=== PATIENT | female | born 1935 | race Caucasian/White ===

== ENCOUNTER 2019-03-23 03:54 | Inpatient (IN) | payer MEDICARE, OTHER, SELFPAY ==
[2019-03-23] VITALS (10 sets, daily range): BP systolic 126–189; BP diastolic 62–80; PULSE 66–80; RESP 12–18; TEMP 35.7–36.9; O2SAT 95–100; BMI 24.5
--- NOTE | 2019-03-23 | DI.ECHO.S_ITS ---
[facility]---------+ [facility] +---------+ : : [address] : [address] : : : : [id number] : : : : Phone: [phone]+ Echocardiogram Report + + :Name: LISA JUSTIN Study Date: 03/23/2019 Height: 62 in : :[facility] Exam Location: [facility] Weight: 130 lb : : Gender: Female BSA: 1.6 m2 : :: 1935 Age: 83 yrs BP: 183/71 mmHg: :Reason For Study: STROKE : : Performed By: Joshua Robles : :Referring: BALJINDER EVANS : + + Interpretation Summary 1) Normal left ventricular thickness, size, wall motion, and systolic function (EF 60-65%). 2) Normal right ventricular size and function. 3) There is mild to moderate aortic regurgitation. 4) Hypertension present during the study (BP 183/71mmHg). 5) No prior Echo available for comparison. Procedure: A two-dimensional transthoracic echocardiogram with color flow and Doppler was performed. The study quality was technically adequate. There is no prior echocardiogram noted for this patient. The patient was in normal sinus rhythm during the exam. Left Ventricle: The left ventricle is normal in size. There is normal left ventricular wall thickness. Proximal septal thickening is noted. The ejection fraction is estimated to be 60-65%. There are no focal wall motion abnormalities. Right Ventricle: The right ventricle is normal in size and function. Atria: The left atrium is mildly dilated. Right atrial size is normal. The interatrial septum is intact with no evidence for an atrial septal defect. Mitral Valve: The mitral valve is normal in structure and function. There is mild mitral regurgitation. Aortic Valve: The aortic valve is trileaflet. The aortic valve opens well. There is no aortic valve stenosis. There is mild to moderate aortic regurgitation. Tricuspid Valve: The tricuspid valve is normal in structure and function. There is a trace or physiologic amount of tricuspid regurgitation. The right ventricular systolic pressure is estimated to be at least 19 mmHg based on an estimated right atrial pressure of 3 mm Hg. Pulmonic Valve: The pulmonic valve is normal in structure and function. There is trace pulmonic regurgitation. Great Vessels: The aortic root is normal size. The dimensions of the ascending aorta are normal. The pulmonary artery is normal size. The IVC is of normal diameter and collapses greater than 50% with a sniff. This suggests a low right atrial pressure of 3 mm Hg. Pericardium/ Pleura There is no pericardial effusion. There is no pleural effusion. MMode/2D Measurements & Calculations LVIDd: 4.1 cm LVOT diam: 1.9 cm LVIDs: 2.6 cm Ao root diam: 2.9 cm FS: 37.3 % Aortic Jxn: 2.4 cm EPSS: 0.27 cm asc Aorta Diam: 2.9 cm IVSd: 0.68 cm Ao Arch Diam (Prox Trans): 2.1 cm LVPWd: 0.78 cm LV gagnon. diameter/BSA (cm/m^2): 2.6 LV sys. diameter/BSA (cm/m^2): 1.6 LA dimension: 2.9 cm RA long axis: 4.7 cm LA A2 area: 18.8 cm2 RA area: 14.7 cm2 LA A4 area: 18.4 cm2 RA vol: 39.0 ml LA length (vol): 4.9 cm RA : 24.5 ml/m2 LA vol: 59.4 ml IVC diam: 1.0 cm LA vol index: 37.3 ml/m2 Doppler Measurements & Calculations Ao V2 max: 127.0 cm/sec LVOT Max Man: 109.5 cm/sec Ao V2 mean: 86.3 cm/sec LV V1 max P.8 mmHg Ao max P.5 mmHg LV V1 VTI: 21.6 cm Ao mean P.3 mmHg PATRICK(I,D): 2.3 cm2 Ao V2 VTI: 26.8 cm PATRICK(V,D): 2.5 cm2 sev ratio: 0.80 PATRICK indexed to BSA (cm^2/m^2): 1.4 AI P1/2t: 447.3 msec AI dec slope: 293.5 cm/sec2 MV E max man: 63.0 cm/sec TR max man: 201.3 cm/sec MV A max man: 91.1 cm/sec TR max P.2 mmHg MV E/A: 0.69 PA V2 max: 75.7 cm/sec Med Peak E' Man: 5.1 cm/sec PA V2 mean: 55.7 cm/sec E/E' med: 12.4 PA mean P.3 mmHg Lat Peak E' Man: 5.1 cm/sec PA pr(Accel): 49.1 mmHg E/E' lat: 12.4 PA Accel Time: 0.06 sec E/e' average: 12.4 MV dec time: 0.14 sec SV(LVOT): 61.4 ml Reading Physician:09:52 AM
--- NOTE | 2019-03-23 03:59 | DI.CT.S_ITS ---
PROCEDURE: CT HEAD/BRAIN WO CON INDICATIONS: stroke symptoms, Left face, arm, leg weakness TECHNIQUE: Noncontrast 4.5 mm thick angled axial sections acquired from the foramen magnum to the vertex, with coronal and sagittal reformats. For radiation dose reduction, the following was used: automated exposure control, adjustment of mA and/or kV according to patient size. COMPARISON: [facility], , CT HEAD W/O, 12/05/2005, 9:04. FINDINGS: Image quality: Excellent. CSF spaces: Basal cisterns are patent. No extra-axial fluid collections. The ventricles are symmetric in size and shape. Brain: No intracranial bleeds or masses. There is mild cerebral volume loss for age, with resultant ventricular and sulcal prominence. There are moderate periventricular and deep white matter chronic small vessel ischemic changes. There is intracranial internal carotid artery atherosclerosis. Skull and face: Calvarium and visualized facial bones appear intact, without suspicious lesions. Sinuses: Visualized sinuses and mastoids are clear. IMPRESSION: 1. No acute intracranial abnormalities. 2. Cerebral volume loss and chronic microvascular ischemic changes. No significant discrepancy with the refrigerator glazier radiology preliminary report. Dictated by: Di Nance M.D. on 03/23/2019 at 7:45 Approved by: Di Nance M.D. on 03/23/2019 at 7:46
--- NOTE | 2019-03-23 04:10 | ED_ITS ---
HPI - Neuro Symptoms/Deficit General Chief Complaint: Neuro Symptoms/Deficit Stated Complaint: Lt Side Deficit Time Seen by Provider: 03/23/19 03:55 Source: patient and EMS Mode of arrival: EMS Limitations: no limitations History of Present Illness HPI Narrative: 83-year-old female nonsmoker presents by EMS for evaluation of stroke-like symptoms which started approximately 15 hours prior to her arrival. The symptoms include left-sided facial weakness some numbness trouble with speech as well as trouble ambulating. She denies any recent injury or blood thinners. She has had no fever or chills. She was not activated as a code stroke, she does have a positive be fast but it is greater than 4.5 hours and does not have evidence suggesting a large vessel occlusion as evidence by a LAMS score of 4-5. Location: speech and left face History of same: No Severity: moderate Quality: weak and tingling Relieving factors: none Exacerbating factors: none Context: gradual onset On Anticoagulants: No Associated symptoms: denies other symptoms Related Data Home Medications Medication Instructions Recorded Confirmed paroxetine HCl 1 tab PO DAILY 03/23/19 03/23/19 Allergies Allergy/AdvReac Type Severity Reaction Status Date / Time No Known Drug Allergies Allergy Verified 03/23/19 04:05 Review of Systems Constitutional Denies chills, Denies fever(s), Denies lethargy and Reports weakness Eyes Denies change in vision, Denies eye discharge, Denies irritation and Denies loss of vision ENT Ears, Nose, Mouth, and Throat: Denies change in voice, Denies neck pain and Denies sore throat Cardiovascular Denies chest pain, Denies irregular heart rhythm, Denies lightheadedness, Denies palpitations, Denies dyspnea, Denies dyspnea on exertion and Denies orthopnea Respiratory Denies cough, Denies dyspnea, Denies dyspnea on exertion and Denies wheezing Gastrointestinal Gastrointestinal: Denies abdominal pain, Denies change in bowel habits, Denies diarrhea, Denies nausea and Denies vomiting Genitourinary Denies hematuria, Denies flank pain, Denies urinary incontinence and Denies urinary urgency Musculoskeletal Denies neck pain and Reports tingling Integumentary/Breasts Denies pruritus, Denies erythema, Denies rash and Denies wounds Neurologic Denies confusion, Denies loss of vision, Reports sensory deficit, Reports tingling and Reports weakness Psychiatric Denies anxiety, Denies confusion, Denies depression, Denies homicidal ideation and Denies suicidal ideation Endocrine Denies palpitations Hematologic/Lymphatic Denies easy bruising Allergic/Immunologic Denies wheezing PFSH Social History Smoking Status: Never smoker Social History Smoking Status: Never smoker Exam Narrative Exam Narrative: GENERAL: 83-year-old female appears stated age, in no obvious or significant distress HEAD: Atraumatic. Normocephalic. No temporal or scalp tenderness. EYES: Pupils equal round and reactive. Extraocular motions intact. No scleral icterus. No injection or drainage. ENT: Nose without bleeding, purulent drainage or septal hematoma. Throat without erythema, tonsillar hypertrophy or exudate. Uvula midline. Airway patent. NECK: Trachea midline. No JVD or lymphadenopathy. Supple, nontender, no meningeal signs. CARDIOVASCULAR: Regular rate and rhythm without murmurs, gallops, or rubs. RESPIRATORY: Clear to auscultation. Breath sounds equal bilaterally. No wheezes, rales, or rhonchi. GASTROINTESTINAL: Abdomen soft, non-tender, nondistended. No hepato-spl enomegaly, or palpable masses. No guarding. EXTREMITIES: No clubbing, cyanosis, or edema. No joint tenderness, effusion, or edema noted. BACK: Nontender without deformity or crepitance. No flank tenderness. NEURO: AOx3. SKIN: No rash or erythema. NIH Stroke Scale 1a. LOC: Patient is alert and keenly responsive (0) 1b. LOC Questions: Patient answers both LOC questions accurately (0) 1c. LOC Commands: Patient performs both tasks correctly (0) 2. Best Gaze: Normal (0) 3. Visual: No visual loss (0) 4. Facial palsy: Normal symmetrical movements (0) 5. Motor arm: No drift (0) 6. Motor leg: No drift (0) 7. Limb ataxia: Absent (0) 8. Sensory: Normal (0) 9. Best language: No aphasia; normal (0) 10. Dysarthria: Normal (0) 11. Extinction and inattention: No abnormality (0) NIHSS: 0 Initial Vital Signs Initial Vital Signs: Vital Signs Temperature 98.2 F 03/23/19 03:54 Pulse Rate 68 03/23/19 03:54 Respiratory Rate 12 03/23/19 03:54 Blood Pressure 189/68 H 03/23/19 03:54 Pulse Oximetry 97 03/23/19 03:54 Scores ABCD2 Age >= 60 years: yes Initial BP. Either SBP >= 140 or DBP >= 90.: yes Clinical features of the TIA: unilateral weakness Duration of symptoms: >= 60 minutes History of diabetes: no ABCD2 Score: 6 Course Orders Ordered: ED Orders 03/23/19 EC echo doppler complete Routine 03/23/19 03:59 CT head/brain wo con Stat EKG-12 Lead Stat 03/23/19 04:00 Basic Metabolic Panel Stat Complete Blood Count AUTO DIFF Stat Partial Thromboplastin Time Stat Prothrombin Time INR Stat 03/23/19 05:30 Urinalysis and Microscopic Stat Urine Drug Screen, Rapid Stat 03/23/19 05:40 Consult to Discharge Planning Routine Consult to Occupational Therapy Evaluate & Treat Consult to Physical Therapy Evaluate & Treat Consult to Speech Therapy Evaluate & Treat MR stroke Stat Education, smoking cessation ONGOING 03/23/19 05:49 Hemoglobin A1C% w Est Avg Glu Urgent Acetaminophen (Tylenol) 650 mg PO Q6HR PRN PRN Reason: Fever Aspirin (Aspirin Ec) 81 mg PO DAILY PRAVEENA Sodium Chloride (Normal Saline 0.9%) 1,000 mls @ 150 mls/hr IV CONT PRAVEENA Last Admin: 03/23/19 04:22 Dose: 150 mls/hr Labetalol HCl (Trandate) 10 mg IV Q6H PRN PRN Reason: Hypertension Discontinued Medications Aspirin (Aspirin Chew) 324 mg PO NOW ONE Stop: 03/23/19 05:33 Last Admin: 03/23/19 05:45 Dose: 324 mg Consultations Consultation #1: hospitalist is happy to accept Vital Signs - 8 hr 03/23/19 03:54 03/23/19 05:13 03/23/19 05:30 Temperature 98.2 F Pulse Rate 68 78 66 Respiratory Rate 12 15 13 Blood Pressure 189/68 H Blood Pressure [Right Arm] 180/65 H 169/71 H Pulse Oximetry 97 98 97 MDM - Neuro Symptoms/Deficit Lab Data Result diagrams: 03/23/19 04:00 03/23/19 04:00 Lab Results 03/23/19 03/23/19 03/23/19 Range/Units 04:00 04:00 04:00 WBC 6.3 (4.5-11.0) X10^3/uL RBC 5.17 (4.0-5.2) X10^6/uL Hgb 13.2 (12.0-16.0) g/dL Hct 39.9 (36-46) % MCV 77.3 L (80-100) fL MCH 25.6 L (26-34) PG MCHC 33.1 (30-36) % RDW 14.5 (11.6-14.8) % Plt Count 211 (150-400) X10^3/uL Neut % (Auto) 49.1 L (50-75) % Lymph % (Auto) 41.3 H (25-40) % [place] % (Auto) 5.9 (3-14) % Eos % (Auto) 2.8 (2-4) % Baso % (Auto) 0.9 (0-2) % Neut # (Auto) 3100 (7638-5578) /uL Lymph # (Auto) 2600 (0071-2110) /uL [place] # (Auto) 400 (0-900) /uL Eos # (Auto) 200 (0-450) /uL Baso # (Auto) 100 (0-100) /uL PT 10.9 (10.1-12.7) SECONDS INR 0.9 (0.9-1.3) APTT 24 L (26.4-36.2) SECONDS Sodium 141 (137-145) mmol/L Potassium 4.0 (3.4-5.1) mmol/L Chloride 109 H (98-107) mmol/L Carbon Dioxide 26 (22-32) mmol/L BUN 19 H (7-17) mg/dL Creatinine 0.90 (0.52-1.04) mg/dL Estimated GFR > 60.0 (>60) mL/min BUN/Creatinine Ratio 21.1 (6-22) Glucose 103 (80-110) mg/dL Calcium 9.3 (8.4-10.2) mg/dL Urine Color Urine Appearance Urine pH (4.5-8.0) Ur Specific [place] (1.000-1.035) Urine Protein (Negative) Urine Glucose (UA) (Negative) g/dL Urine Ketones (NEGATIVE) Urine Occult Blood (Negative) Urine Nitrate (Negative) Urine Bilirubin (NEGATIVE) Urine Urobilinogen (0.2) E.U./dL Ur Leukocyte Esterase (NEGATIVE) Urine Opiates Screen (Negative) Ur Oxycodone Screen (Negative) Urine Methadone Screen (Negative) Ur Barbiturates Screen (Negative) U Tricyclic Antidepress (Negative) Ur Phencyclidine Scrn (Negative) Ur Amphetamines Screen (Negative) U Methamphetamines Scrn (Negative) Ur MDMA Scrn (Ecstasy) (Negative) U Benzodiazepines Scrn (Negative) Urine Cocaine Screen (Negative) U Marijuana (THC) Screen (Negative) 03/23/19 03/23/19 Range/Units 05:30 05:30 WBC (4.5-11.0) X10^3/uL RBC (4.0-5.2) X10^6/uL Hgb (12.0-16.0) g/dL Hct (36-46) % MCV (80-100) fL MCH (26-34) PG MCHC (30-36) % RDW (11.6-14.8) % Plt Count (150-400) X10^3/uL Neut % (Auto) (50-75) % Lymph % (Auto) (25-40) % [place] % (Auto) (3-14) % Eos % (Auto) (2-4) % Baso % (Auto) (0-2) % Neut # (Auto) (0273-5035) /uL Lymph # (Auto) (8581-3013) /uL [place] # (Auto) (0-900) /uL Eos # (Auto) (0-450) /uL Baso # (Auto) (0-100) /uL PT (10.1-12.7) SECONDS INR (0.9-1.3) APTT (26.4-36.2) SECONDS Sodium (137-145) mmol/L Potassium (3.4-5.1) mmol/L Chloride (98-107) mmol/L Carbon Dioxide (22-32) mmol/L BUN (7-17) mg/dL Creatinine (0.52-1.04) mg/dL Estimated GFR (>60) mL/min BUN/Creatinine Ratio (6-22) Glucose (80-110) mg/dL Calcium (8.4-10.2) mg/dL Urine Color Yellow Urine Appearance Clear Urine pH 7.5 (4.5-8.0) Ur Specific [place] 1.015 (1.000-1.035) Urine Protein Negative (Negative) Urine Glucose (UA) Negative (Negative) g/dL Urine Ketones Negative (NEGATIVE) Urine Occult Blood Negative (Negative) Urine Nitrate Negative (Negative) Urine Bilirubin Negative (NEGATIVE) Urine Urobilinogen 0.2 (0.2) E.U./dL Ur Leukocyte Esterase 1+ H (NEGATIVE) Urine Opiates Screen Negative (Negative) Ur Oxycodone Screen Negative (Negative) Urine Methadone Screen Negative (Negative) Ur Barbiturates Screen Negative (Negative) U Tricyclic Antidepress Negative (Negative) Ur Phencyclidine Scrn Negative (Negative) Ur Amphetamines Screen Negative (Negative) U Methamphetamines Scrn Negative (Negative) Ur MDMA Scrn (Ecstasy) Negative (Negative) U Benzodiazepines Scrn Negative (Negative) Urine Cocaine Screen Negative (Negative) U Marijuana (THC) Screen Negative (Negative) Imaging Data CT scan - head: Radiologist's impression: No bleed ECG Data Attestation: I personally reviewed and interpreted this ECG as follows: Prior ECG tracings: not available for review Interpretation: EKG is normal sinus rhythm rate [Sixty ] and free of any signs of ischemia or ectopy. No ST segmental elevation or depression. No T wave inversions Discharge Plan Departure Patient Disposition: Admitted as Observation Clinical Impression: Transient cerebral ischemia Qualifiers: Transient cerebral ischemia type: unspecified Qualified Code(s): G45.9 - Transient cerebral ischemic attack, unspecified Admit Date/Time: 03/23/19 05:36 Admit Provider: Constantin Medrano
[2019-03-23 04:14] LABS: INR 0.9 (0.9-1.3); Prothrombin Time 10.9 SECONDS (10.1-12.7)
[2019-03-23 04:15] LABS: Add Manual Diff / Slide Review NO; Basophils Absolute Auto 100 /uL (0-100); Basophils Percent Auto 0.9 % (0-2); Eosinophils Absolute Auto 200 /uL (0-450); Eosinophils Percent Auto 2.8 % (2-4); Hematocrit 39.9 % (36-46); Hemoglobin 13.2 g/dL (12.0-16.0); Lymphocytes Absolute Auto 2600 /uL (1100-4500); Lymphocytes Percent Auto 41.3 % (25-40); Mean Corpuscular HGB Conc 33.1 % (30-36); Mean Corpuscular Hemoglobin 25.6 PG (26-34); Mean Corpuscular Volume 77.3 fL (80-100); Monocytes Absolute Auto 400 /uL (0-900); Monocytes Percent Auto 5.9 % (3-14); Neutrophils Absolute Auto 3100 /uL (1500-7000); Neutrophils Percent Auto 49.1 % (50-75); Platelet Count 211 X10^3/uL (150-400); Red Blood Cell Count 5.17 X10^6/uL (4.0-5.2); Red Cell Distribution Width 14.5 % (11.6-14.8); White Blood Cell Count 6.3 X10^3/uL (4.5-11.0)
[2019-03-23 04:16] LABS: PTT Partial Thromboplastin Tim 24 SECONDS (26.4-36.2)
[2019-03-23 04:18] LABS: BUN Creatinine Ratio 21.1 (6-22); Blood Urea Nitrogen 19 mg/dL (7-17); Calcium 9.3 mg/dL (8.4-10.2); Carbon Dioxide 26 mmol/L (22-32); Chloride 109 mmol/L (98-107); Estimated Glomerular Filt Rate > 60.0 mL/min (>60); Glucose 103 mg/dL (80-110); HEMOLYSIS < 15 (0-50); Sodium 141 mmol/L (137-145)
[2019-03-23] MEDS: SODIUM CHLORIDE 0.9% 1,000 ML 150 ML IV (04:22)
[2019-03-23 05:35] LABS: RBC Urine None Seen (0-5/HPF)
[2019-03-23 05:37] LABS: Appearance Urine UA CLEAR; Bilirubin Urine UA NEGATIVE (NEGATIVE); Color Urine UA YELLOW; Glucose Urine UA NEGATIVE (Negative); Ketones Urine UA NEGATIVE (NEGATIVE); Leukocyte Esterase Urine UA 1+ (NEGATIVE); Nitrite Urine UA NEGATIVE (Negative); Occult Blood Urine UA NEGATIVE (Negative); Protein Urine UA NEGATIVE (Negative); Specific Gravity Urine UA 1.015 (1.000-1.035); Urobilinogen Urine UA 0.2 E.U./dL (0.2); pH Urine UA 7.5 (4.5-8.0)
--- NOTE | 2019-03-23 05:40 | DI.MRI.S_ITS ---
PROCEDURE: MR STROKE Pre- and post-contrast brain MRI, non-contrast brain MR angiogram, pre- and postcontrast neck MR angiogram INDICATIONS: stroke r/o TECHNIQUE: Brain: Noncontrast axial T1 spin echo, axial T2 fast spin echo, sagittal and axial FLAIR, coronal T2 fast spin echo, axial gradient echo, axial diffusion and ADC through the brain. After the administration of contrast, axial 3D VIBE of the cranial vasculature and brain. Brain MRA: Non-contrast 3-D time of flight MR angiogram, with multiple otgquob-kzwxyerrt-zlpvdapxxs (MIP) reformats performed. Neck MRA: Axial and sagittal TruFISP through the neck. Coronal dynamic MR angiogram during administration of contrast in the arterial and venous phases, with 3-dimenstional dpqgdzr-hdpizinmx-ntmzijdgaa (MIP) reformats constructed from subtraction images. COMPARISON: None. FINDINGS: Image quality: Excellent. BRAIN: CSF spaces: Ventricles are normal in size and shape. Basal cisterns are patent. No extra-axial fluid collections. Brain: No intracranial bleeds or mass effects. Cardoza-white matter interface is normal. Diffuse periventricular and deep white matter changes are present suggesting chronic microvascular ischemic changes. There prominent bilateral perivascular spaces in the basal ganglia. A punctate focus of increased restricted diffusion is present within the right parietal lobe (series 26, image 66). No associated T2 shine through. No other foci of increased restricted diffusion. Brainstem appears normal. Normal intravascular flow voids are present. No abnormal intracranial enhancement. Skull and face: Calvarial marrow signal is normal. Orbits appear normal. Sinuses: There is a large mucus retention cyst within the right maxillary sinus. Sinuses and mastoids are otherwise clear. BRAIN MR ANGIOGRAM: Anterior circulation: Intracranial internal carotid arteries are normal in size and enhancement. The flow within the paired anterior cerebral arteries is normal and symmetric. The flow within the middle cerebral arteries is normal and symmetric. The anterior communicating artery is seen. No stenoses, occlusions, or aneurysms. Posterior circulation: The visualized portions of the vertebral arteries demonstrate normal caliber, and join to form a normal appearing basilar artery. The flow within the posterior cerebral arteries is normal and symmetric. No stenoses, occlusions, or aneurysms. NECK MR ANGIOGRAM: Carotids: Great vessels demonstrate a conventional anatomy as they arise from the aortic arch. The origins of the common carotid arteries appear patent. The calibers and courses of both common carotid arteries are normal. The bifurcation regions appear normal bilaterally. The internal carotid arteries demonstrate normal course and caliber. Posterior circulation: The origins of the vertebral arteries appear patent. More superior portions of both vertebral arteries demonstrate normal course and caliber, and join to form a normal appearing basilar artery. Miscellaneous: Subclavian arteries appear patent. Pre-contrast images through the neck show no soft tissue abnormalities. IMPRESSION: BRAIN MRI: 1. Punctate region of increased restricted diffusion within the right parietal lobe consistent with acute or subacute infarct. This finding was discussed with Dr. Moreira at 11:10 AM on 03/23/19. 2. No other acute intracranial findings. 3. Extensive findings likely associated with chronic microvascular ischemic changes. BRAIN MR ANGIOGRAM: 1. No stenosis, occlusion, or aneurysm. NECK MR ANGIOGRAM: 1. No stenosis, occlusion, or aneurysm. Dictated by: Theresa Gomez M.D. on 03/23/2019 at 10:59 Approved by: Theresa Gomez M.D. on 03/23/2019 at 11:10
[2019-03-23 05:42] LABS: Urine Amphetamines Negative (Negative); Urine Barbiturates Negative (Negative); Urine Benzodiazepines Negative (Negative); Urine Cocaine Negative (Negative); Urine MDMA Negative (Negative); Urine Methadone Negative (Negative); Urine Methamphetamines Negative (Negative); Urine Morphine/Opi cutoff 2000 Negative (Negative); Urine Oxycodone Negative (Negative); Urine Phencyclidine Negative (Negative); Urine Tetrahydrocannabinol Negative (Negative); Urine Tricyclic Antidepressant Negative (Negative)
[2019-03-23] MEDS: ASPIRIN 81 MG TAB 324 MG PO (05:45)
--- NOTE | 2019-03-23 05:52 | PM.HP.1 ---
History of Present Illness Date Patient Seen: 03/23/19 Time Patient Seen: 05:52 Chief complaint: Lt Side Deficit Narrative: The patient is in 83-year-old female w/ PMH of subarachnoid hemorrhage (1991) and silent migraines. Patient presented to the ED on 03/23/2019 (0354 am, triaged) out of concern for stroke-like symptoms. Specifically, patient reports developing left upper and lower extremity weakness. Symptoms initially noted on 03/22/2019 at 12:00 p.m. Patient did not assume symptoms as concerning and proceeded with her day. She went to sleep and work up at 3:00 a.m. to use the restroom. Patient fell while attempting to ambulate. Prior to the fall patient reports gait instability and difficulty with balance. Denies loss of consciousness. Although does not seem to have clear recollection of the event. Denies injury to the head. Patient's fall was heard by her . EMS was summoned for help. In field and per triage note, patient was observed having left-sided facial weakness and difficulty speaking. Patient has a history silent migraines. Experiences migraine auras. Typically auras of the silent migraine involve change in vision or loss of vision. Notes a history of anxiety and depression. Reports being on paxil for over 10 years, In the past 2 months patient has been trying to wean herself off. Went from 20 mg to 10 mg few little over a month and notes taking only two doses this week. Also, in the past year patient reports having elevated blood pressures with a noted SBP range between 130-140 mmHg. Endorses drinking 1 glass of wine nightly. No prior current history of tobacco or recreational drug use. Patient denies history of seizures. Denies prior injury to the head. Denies syncopal events. She does not have a history of heart disease, cardiac arrhythmias, cerebrovascular events, vertigo, diabetes, or thrombosis. ED presentation and work-up T 98.2F BP 189/68 HR 68 RR 12 SpO2 97% on RA GCS 15 c/o left arm pain 4/10 WBC 6.3 Hgb 13.2 Plt 211 PT 10.9 INR 0.9 aPTT 24 Na 141 K 4.0 Cl 109 Ca 9.3 Glu 103 CO2 26 BUN 19 Cr 0.9 urinalysis and urine drug screen pending CT Head, reported to be negative from ED Physician (Dr. Wade), final read pending. 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) Subarachnoid hemorrhage (Chronic) Surgical History (Updated 03/23/19 @ 06:38 by ALLY Gamino) History of cholecystectomy (Chronic) History of tonsillectomy (Chronic) Family History (Updated 03/23/19 @ 06:40 by ALLY Gamino) Mother Stroke Vertigo Father Heart disease Myocardial infarct Social History household members: spouse Smoking Status: Never smoker Family & Social History Family History (Updated 03/23/19 @ 06:40 by ALLY Gamino) Mother Stroke Vertigo Father Heart disease Myocardial infarct Safety & Behavioral: Feels Safe in Current Yes Environment Been Physically Hurt or No Threatened By a Person Tobacco & Substance use: Smoking Status Never smoker alcohol intake frequency Drinks a glass of wine daily Substance Use Type Denies prior or current use Meds Home Medications Medication Instructions Recorded Confirmed Type paroxetine HCl 1 tab PO DAILY 03/23/19 03/23/19 History Allergies Allergy/AdvReac Type Severity Reaction Status Date / Time No Known Drug Allergies Allergy Verified 03/23/19 04:05 Review of Systems Review of Systems All systems reviewed & are unremarkable except as noted in HPI and below Exam Vital Signs (past 8 hours): - 03/23/19 03:54 03/23/19 05:13 03/23/19 05:30 Temperature 98.2 F Pulse Rate 68 78 66 Respiratory Rate 12 15 13 Blood Pressure 189/68 H Blood Pressure [Right Arm] 180/65 H 169/71 H Pulse Oximetry 97 98 97 Oxygen Delivery Method Room Air Narrative Exam Narrative: Constitutional: NAD Neurologic: AOx3, no facial asymmetry, sensation intact, no tremor Head: NC, AT Eyes: PERRL, EOMI, Ears: external ears normal, no otorrhea Nose: external nose normal, no rhinorrhea or epistaxis Throat: dry MM, oropharynx w/o exudate Neck: no masses, lymphadenopathy, or JVD Chest / Respiratory: equal chest rise, unlabored respiratory effort, no tachypnea CTAB no rrw Heart / CV: S1S2, no murmur Abdomen / GI: round, NT, ND, + BS, no organomegaly : no suprapubic tenderness, no CVA Peripheral / Vascular: warm to touch, DP and PT pulses palpable, no edema Musc: full ROM of upper and lower extremities, adequate muscle tone and bulk left lower extremity weakness Skin: no ecchymosis or suspicious lesions / ulcers NIHSS is 1 (partial hemianopia left) She is having slight left lower extremity weakness (but no drift, thus scored as 0) and partial hemianopia Objective Labs Result Diagrams: 03/23/19 04:00 03/23/19 04:00 Labs: Laboratory Results - last 24 hr 03/23/19 03/23/19 03/23/19 04:00 04:00 04:00 WBC 6.3 RBC 5.17 Hgb 13.2 Hct 39.9 MCV 77.3 L MCH 25.6 L MCHC 33.1 RDW 14.5 Plt Count 211 Neut % (Auto) 49.1 L Lymph % (Auto) 41.3 H [place] % (Auto) 5.9 Eos % (Auto) 2.8 Baso % (Auto) 0.9 Neut # (Auto) 3100 Lymph # (Auto) 2600 [place] # (Auto) 400 Eos # (Auto) 200 Baso # (Auto) 100 PT 10.9 INR 0.9 APTT 24 L Sodium 141 Potassium 4.0 Chloride 109 H Carbon Dioxide 26 BUN 19 H Creatinine 0.90 Estimated GFR > 60.0 BUN/Creatinine Ratio 21.1 Glucose 103 Calcium 9.3 Urine Color Urine Appearance Urine pH Ur Specific [place] Urine Protein Urine Glucose (UA) Urine Ketones Urine Occult Blood Urine Nitrate Urine Bilirubin Urine Urobilinogen Ur Leukocyte Esterase Urine Opiates Screen Ur Oxycodone Screen Urine Methadone Screen Ur Barbiturates Screen U Tricyclic Antidepress Ur Phencyclidine Scrn Ur Amphetamines Screen U Methamphetamines Scrn Ur MDMA Scrn (Ecstasy) U Benzodiazepines Scrn Urine Cocaine Screen U Marijuana (THC) Screen 03/23/19 03/23/19 05:30 05:30 WBC RBC Hgb Hct MCV MCH MCHC RDW Plt Count Neut % (Auto) Lymph % (Auto) [place] % (Auto) Eos % (Auto) Baso % (Auto) Neut # (Auto) Lymph # (Auto) [place] # (Auto) Eos # (Auto) Baso # (Auto) PT INR APTT Sodium Potassium Chloride Carbon Dioxide BUN Creatinine Estimated GFR BUN/Creatinine Ratio Glucose Calcium Urine Color Yellow Urine Appearance Clear Urine pH 7.5 Ur Specific [place] 1.015 Urine Protein Negative Urine Glucose (UA) Negative Urine Ketones Negative Urine Occult Blood Negative Urine Nitrate Negative Urine Bilirubin Negative Urine Urobilinogen 0.2 Ur Leukocyte Esterase 1+ H Urine Opiates Screen Negative Ur Oxycodone Screen Negative Urine Methadone Screen Negative Ur Barbiturates Screen Negative U Tricyclic Antidepress Negative Ur Phencyclidine Scrn Negative Ur Amphetamines Screen Negative U Methamphetamines Scrn Negative Ur MDMA Scrn (Ecstasy) Negative U Benzodiazepines Scrn Negative Urine Cocaine Screen Negative U Marijuana (THC) Screen Negative Assessment & Plan Assessment & Plan narrative: Left sided weakness, acute, present on admission, active NIHSS 1 - CT head negative preliminary read, final read pending - MR Stroke - Echo w/ bubble study to assess PFO / cardiac shunting - ASA 325 mg, received in ED - Risk Stratify: A1C, FLP (goal LDL < 70) - IVF @ 75 ml/hr x1L, then stop - Labetalol 10 mg Q6H PRN for SBP > 180 and/or DBP > 110 - NIHSS QShift and neuro checks per hospital stroke protocol - Telemetry monitoring - Supplemental O2, titrate accordingly to keep SpO2 > 95% - NPO, may advance diet if patient passes bedside swallow - Consult case management, re: d/c planning - Stroke education Elevated BP w/o prior diagnosis of hypertension - Trend BP - Treat w/ prn labetalol, ok for permissive HTN in the next 24 hours Anxiety and Depression, chronic condition, present admission, stable Patient has been attempting to wean cell from 20 mg daily for the past few months. In the past week has taken Paxil dose twice. 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 Spouse is the DPOA. Home medications reviewed and reconciled.
--- NOTE | 2019-03-23 06:06 | PC.NURSE ---
AYAZ Medrano at bedside
[2019-03-23 06:21] LABS: Bacteria Urine Few (2-10); Culture Indicated Urine Specimen Cultured; Squamous Epithelial Cell Urine None Seen (0-5/HPF); WBC Urine 0-1/HPF (0-5/HPF)
[2019-03-23 06:25] LABS: Hemoglobin A1C% w Est Avg Glu 5.2 % (4.0-6.0)
[2019-03-23 07:11] LABS: Cholesterol 196 mg/dL (140-199); HDL Cholesterol 51 mg/dL (40-60); LDL Cholesterol Calculated 122 mg/dL (<100); Triglycerides 116 mg/dL (35-150)
--- NOTE | 2019-03-23 09:13 | ST.IPCSEOM ---
Past Medical History (Last Updated 03/23/19 @ 07:42 by ALLY Gamino) Anxiety and depression (Acute Medical) Migraine aura without headache (Chronic Medical) Subarachnoid hemorrhage (Chronic Medical) unprovoked, 1991 Speech-Language Pathology Swallow Evaluation HEAD OF ETHICS AND COMPLIANCE Clinical Swallow Evaluation Start: 03/23/19 08:54 Freq: Status: Active Protocol: Document 03/23/19 08:55 TLC (Rec: 03/23/19 08:58 TLC [id number]) Clinical Swallow Evaluation Session Time Visit Start Time 08:35 Visit Stop Time 08:55 Total Visit Minutes 20 Setting Assessment Location Acute Care Visit Type Note Type Initial Evaluation Patient Information Identification Type Name History Mrs. Hinojosa presented to the ER with stroke like symptoms, specifically upper and lower extremity weakness. She was also found to have left sided facial droop and difficulty speaking. CT was unremarkable. She will have an MRI today. Subjective Observations Lying in bed, but awake and oriented. She agreed to participate in an evaluation. Evaluation Liquids Trialed Thin Solids Trialed Puree Regular Administration Type Self-Feeding Oral Impairment WFL Oral Phase Comments Oral [facility] Exam revealed mild left sided facial droop. No lingual asymmetry noted during protrusion. Strength, coordination and range of motion of the oral musculature for speech and swallowing were within functional limits. Articulation was precise during DDK. Dentition adequate for mastication. No impairments in oral phase observed during PO trials. Pharyngeal Impairment WFL Pharyngeal Phase Comments No signs or symptoms of aspiration observed during trials. She self-administered single and consecutive cup sips of water and bites of apple sauce and isabelle crackers.Patient has strong volitional throat clear and cough. No concern for aspiration at this time. Findings Impressions No dysphagia observed during clinical swallow evaluation. Informal assessment of receptive and expressive language and speech completed and all found to be within functional limits. Patient had one instance of difficulty naming a hammock pictured, but was able to do so when given a phonemic cue. She endorses some mild word finding deficits which began prior to this hospitalization. Diet Recommendations Liquids Order Thin Diet Order Regular Medication Recommendations As Tolerated Treatment Plan Placement Recommendations after Home Discharge Appropriate for Therapy No Therapy Recommendations Speech therapy services not warranted at this time. Swallowing, speech and language appear back to baseline. Mild left facial droop does not impact speech or swallowing.
--- NOTE | 2019-03-23 09:25 | PT.IIE ---
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 3 steps to enter with B rails to 2nd floor bedroom: 12 steps with B rails Home Environment High Toilet Walk in Shower Home Equipment Straight Cane Grab Bars In Shower Employment Status Retired M2 PT-IP Current Condition Start: 03/23/19 11:32 Freq: NEEDED Status: Active Protocol: Document 03/23/19 09:25 AB (Rec: 03/23/19 11:54 AB [id number]) Physical Therapy Current Condition Current Condition Evaluation Date 03/23/19 Treatment Diagnosis CVA; difficulty in walking Onset Date 03/23/19 Precautions Other Precautions falls M3 PT-IP Subjective Start: 03/23/19 11:32 Freq: NEEDED Status: Active Protocol: Document 03/23/19 09:25 AB (Rec: 03/23/19 11:54 AB [id number]) Subjective Physical Therapy Visit Type Type Initial Evaluation Visit Start Time 09:25 Visit Stop Time 09:57 Total Visit Minutes 32 Number of MOBILE HOMES REPAIRER Visits 0 Physical Therapy Visit Comments Patient Comments pt agreeable to do PT Therapy Pain Assessment Pain Present Pain Present Denied Pain M4 PT-IP Mobility and Gait Start: 03/23/19 11:32 Freq: NEEDED Status: Active Protocol: Document 03/23/19 09:25 AB (Rec: 03/23/19 11:54 AB [id number]) PT-Bed Mobility Assessment Supine to Sit Supine to Sit Standby Assistance Scooting Scooting to Edge of Bed Standby Assistance PT-Transfer Assessment Sit to and From Stand Sit to and from Stand Contact Guard Assistance Equipment Transfer Assistive Device Gait Belt Front Wheeled Walker Orthotic/Prosthetic Devices or Brace: No Transfers Transfer Destination Chair Transfer Technique pt ambulated using FWW Transfer Ability Level of Assist Contact Guard Assistance Gait Assessment Gait Gait Assistance Required: Contact Guard Assist Minimum Assistance Distance (Feet) 75 Able to Maintain Weight Bearing Status Yes During Gait Assistive Devices Assistive Device None Gait Belt Straight Cane Front Wheeled Walker Orthotic/Prosthetic Devices or Brace: No Gait Deviations General Gait Pattern Step-to Gait Factors Limiting Gait Function Factors Limiting Gait Function Difficulty Following Directions Incoordination Poor Balance Poor Safety Awareness Comments Gait Comments pt ambulated using FWW CGA to the hair. assessed ambulation without AD and pt requiring min A and cues. pt presents with narrow LOUIS, LOB towards the L requiring min A for recovery and pt also tends to cross RLE over to the L. Pt educated on how to use SPC. pt ambulated ~ 30 ft using SPC requiring CGA to occasionally min A and cues for techniques. pt is more stable with use of SPC compared to without AD but requires further training. Stair Climbing Assessment Evaluation Level of Assist On Stairs Contact Guard Assistance Devices Stair Climbing Assistive Devices Left Railing Right Railing Technique/Endurance Stair Climbing Direction Ascend and Descend Number of Steps Climbed 3 Query Text: Stair Climbing Set # Repetitions (reps) 1 PT-Balance Assessment Sitting Balance and Reactions Static Sitting Balance Ability Good Dynamic Sitting Balance Ability Good Standing Balance and Reactions Static Standing Balance Ability Fair Dynamic Standing Balance Ability Fair Device Used without AD Functional Assessments Functional Tests 5 Times Sit to Stand 14.12 sec M5 PT-IP Objective Assessments Start: 03/23/19 11:32 Freq: NEEDED Status: Active Protocol: Document 03/23/19 09:25 AB (Rec: 03/23/19 11:54 AB [id number]) Orientation Orientation/Cognition Level of Alertness Alert Orientation Name Age Birthday Date Place Situation Language Function Ability No Deficits Noted Memory Description No Deficits Noted Gross Range of Motion Lower Extremity ROM Assessment Within Functional Limits Strength Lower Extremity Strength Assessment Within Functional Limits Sensation Assessment Sensation Gross Sensation WNL Muscle Tone Muscle Tone WNL Yes M6 PT-IP Treatment Start: 03/23/19 11:32 Freq: NEEDED Status: Active Protocol: Document 03/23/19 09:25 AB (Rec: 03/23/19 11:54 AB [id number]) Physical Therapy Treatment Education Education Provided Safety M7 PT-IP Assessment and Plan Start: 03/23/19 11:32 Freq: NEEDED Status: Active Protocol: Document 03/23/19 09:25 AB (Rec: 03/23/19 11:54 AB [id number]) PT Summary Assessment and Plan Potential Rehabilitation Potential Good Status of Condition at Evaluation Stable Summary Impairments Balance Coordination Bed Mobility Transfers Gait Activity Tolerance Assessment Summary pt requiring CGA to min A with mobility. (+) LOB without AD . d/c plan depending if spouse will be able to assist pt at home. Goals Bed Mobility Goal Independent Transfer Goal Independent Gait Goal Independent Cane Gait Distance 200 Other Goals 12 steps with bilateral rails SBA Days to Meet Goals 5 Frequency of Treatment Frequency Of Treatment Twice a Day Treatment Plan Physical Therapy Treatment Plan Bed Mobility Training Transfer Training Gait Training Therapeutic Exercise Balance Retraining Discharge Planning Neuromuscular Re-ed Coordination Retraining Manual Therapy Other Recommendations and Next Treatment standing balance training, Focus ambulation training and stair training Recommendations To Nursing Amount of Assist Needed 1 Person Assist Discharge Recommendations PT Discharge Recommendations Home with Assistance Acute Rehab Outpatient PT Other Discharge Recommendations home with assist and outpt PT vs acute rehab Equipment Needed for Home Before FWW if not safe with SPC Discharge
[2019-03-23] MEDS: PARoxetine 10 MG TABLET PO (11:26)
--- NOTE | 2019-03-23 15:16 | CM.DANOTE ---
DCP/Assessment: Reviewed chart. Patient is a 83yr old female admitted to [facility] with stroke like symptoms. PCP is DR. Newell. Primary payor is 1)Medicare 2)[employer]. Met with patient and spouse explained CM/SW role. Patient reports that she hopes to go home today? Patient seen by therapy and current recommendation is outpatient therapy. Patient reports that she is completely I at baseline. Patient drives at baseline. Patient and spouse deny any d/c planning needs. P: Anticipate home when stable. CM team to follow closely. ROYA Smith Discharge Planning/Care Management CM Discharge Assessment Start: 03/23/19 15:13 Freq: Status: Active Protocol: Document 03/23/19 15:13 KJS (Rec: 03/23/19 15:16 KJS [id number]) Discharge Planning Assessment Assigned Human Service Specialist ROYA Smith Contact Information Bradly Hinojosa (spouse) [phone] Advance Directives? Yes History Provided By Patient Significant Other Medical Record Prior Living Arrangements House Household Members spouse Type of transporation used prior to Drives own vehicle admit Independent with ADL's Yes Is patient alert and oriented? Yes Caregiver for Another No Barriers to Discharge No Discharge Plan Home Transportation Arrangement Family to provide tranport when medically stable. Whiteboard Updated in Patient Room with Yes name and ext. # of Human Service Specialist Review Status In Process Next Review Type Continued Stay Review
--- NOTE | 2019-03-23 15:20 | PT.IPTN ---
Physical Therapy Treatment Note M2 PT-IP Current Condition Start: 03/23/19 11:32 Freq: NEEDED Status: Active Protocol: Document 03/23/19 09:25 AB (Rec: 03/23/19 11:54 AB [id number]) Physical Therapy Current Condition Current Condition Evaluation Date 03/23/19 Treatment Diagnosis CVA; difficulty in walking Onset Date 03/23/19 Precautions Other Precautions falls M3 PT-IP Subjective Start: 03/23/19 11:32 Freq: NEEDED Status: Active Protocol: Document 03/23/19 15:20 AB (Rec: 03/23/19 18:10 AB [id number]) Subjective Physical Therapy Visit Type Type Treatment Note Visit Start Time 15:20 Visit Stop Time 16:30 Total Visit Minutes 50 Number of LUMBER CARRIER OPERATOR Visits 0 Physical Therapy Visit Comments Patient Comments pt agreeable to do PT Patient Goals to go home Therapy Pain Assessment Pain Present Pain Present Denied Pain M4 PT-IP Mobility and Gait Start: 03/23/19 11:32 Freq: NEEDED Status: Active Protocol: Document 03/23/19 15:20 AB (Rec: 03/23/19 18:10 AB [id number]) PT-Bed Mobility Assessment Supine to Sit Supine to Sit Standby Assistance Sit to Supine Sit to Supine Standby Assistance Scooting Scooting to Edge of Bed Standby Assistance PT-Transfer Assessment Sit to and From Stand Sit to and from Stand Contact Guard Assistance Use of Upper Extremities Equipment Transfer Assistive Device Gait Belt Comments Mobility Comments standing balance/tolerance activity conducted. educated pt on COG and awareness to improve standing balance. completed weight shifting ant/ post/ side to side and rotations, completing reaching activities on BUE. Gait Assessment Gait Gait Assistance Required: Contact Guard Assist Minimum Assistance Distance (Feet) 40 Able to Maintain Weight Bearing Status Yes During Gait Assistive Devices Assistive Device Gait Belt Straight Cane Front Wheeled Walker Gait Deviations General Gait Pattern Antalgic Decreased Stride Length Decreased Feet Clearance Narrow Based Gait Factors Limiting Gait Function Factors Limiting Gait Function Decreased Activity Tolerance Decreased Strength Difficulty Following Directions Poor Balance Poor Safety Awareness Comments Gait Comments pt completed ambulation using FWW CGA to min A with emphasis on increase LOU[place], decrease RLE crossing midline and improving reaction time during weight shifting back to the center when moving RLE forward . pt also completed ambulation using SPC ~ 40 ft min with max cues for sequencing and correcting LOB. pt continues to have lateral LOB to the L with RLE crossing midline. M5 PT-IP Objective Assessments Start: 03/23/19 11:32 Freq: NEEDED Status: Active Protocol: Document 03/23/19 09:25 AB (Rec: 03/23/19 11:54 AB [id number]) Orientation Orientation/Cognition Level of Alertness Alert Orientation Name Age Birthday Date Place Situation Language Function Ability No Deficits Noted Memory Description No Deficits Noted Gross Range of Motion Lower Extremity ROM Assessment Within Functional Limits Strength Lower Extremity Strength Assessment Within Functional Limits Sensation Assessment Sensation Gross Sensation WNL Muscle Tone Muscle Tone WNL Yes M6 PT-IP Treatment Start: 03/23/19 11:32 Freq: NEEDED Status: Active Protocol: Document 03/23/19 15:20 AB (Rec: 03/23/19 18:10 AB [id number]) Physical Therapy Treatment Education Education Provided Safety M7 PT-IP Assessment and Plan Start: 03/23/19 11:32 Freq: NEEDED Status: Active Protocol: Document 03/23/19 15:20 AB (Rec: 03/23/19 18:10 AB [id number]) PT Summary Assessment and Plan Potential Rehabilitation Potential Good Summary Impairments Strength Balance Coordination Cognition Bed Mobility Transfers Gait Activity Tolerance Progress Towards Goals Slow Progress due to Medical Issues Assessment Summary pt requiring one person assist with mobility and continues to have LOB during ambulation. Pt plans to go home. will conduct caregiver training with spouse and stair climbing . recommending outpt PT. Goals Bed Mobility Goal Independent Transfer Goal Independent Gait Goal Independent Cane Gait Distance 200 Other Goals 12 steps with bilateral rails SBA Days to Meet Goals 5 Frequency of Treatment Frequency Of Treatment Twice a Day Treatment Plan Physical Therapy Treatment Plan Bed Mobility Training Transfer Training Gait Training Therapeutic Exercise Balance Retraining Discharge Planning Neuromuscular Re-ed Coordination Retraining Manual Therapy Other Recommendations and Next Treatment standing balance training, Focus ambulation training and stair training Recommendations To Nursing Amount of Assist Needed 1 Person Assist Discharge Recommendations PT Discharge Recommendations Home with 24/7 Assist Acute Rehab Outpatient PT Other Discharge Recommendations home with 24/7 assist and outpt PT vs acute rehab Equipment Needed for Home Before FWW if not safe with SPC Discharge
--- NOTE | 2019-03-23 17:12 | PC.NURSE ---
evening shift note- patient alert and oriented and able to make needs known to staff. patient pleasent, calm, and cooperative with care. No complaints of pain or discomfort. No complaints of N/V. NIH completed with score of 0. No facial droop or slurred speech noted. Hand grasp stronger to right side. Safety measures in place. Patient agrees to call for assistance. Bed alarm activated. Call morelos and phone within reach. will continue to monitor.
--- NOTE | 2019-03-23 19:32 | OT.IP.EVAL ---
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 hemorrhage (Chronic) Surgical History (Last Updated 03/23/19 @ 06:38 by ALLY Gamino) History of cholecystectomy (Chronic) History of tonsillectomy (Chronic) Occupational Therapy Inpatient Evaluation/Re-Eval M1 PT/OT-IP Prior Functional Status Start: 03/23/19 19:03 Freq: NEEDED Status: Active Protocol: Document 03/23/19 19:03 [facility] (Rec: 03/23/19 19:32 [facility] [id number]) Medical Review Prior Functional Status Medical History Reviewed Yes Communication able to make needs known Mobility and Gait pt stated that she is independent with all mobilities and ambulation without AD Activities of Daily Living and IADL's Pt states independent with all ADl, IADL,drives, gardens, and walks her dog. Prior Functional Level (Other details) Pt states has had 1 fall in past month, 2 fall in the past 6 months and 3-4 falls in the past year. Social History Household Members spouse Living Arrangements House Number of Floors (Floors) Two Floors Number of Stairs To Enter/Railing? 3 steps to enter with B rails to 2nd floor bedroom: 12 steps with B rails Home Environment High Toilet Walk in Shower Home Equipment Straight Cane Grab Bars In Shower Employment Status Retired Additional Social History Comment There is a builtin seat in the shower. M2 OT-IP Current Condition Start: 03/23/19 19:03 Freq: Status: Active Protocol: Document 03/23/19 19:03 [facility] (Rec: 03/23/19 19:32 [facility] [id number]) Occupational Therapy Current Condition Current Condition Evaluation Date 03/23/19 Treatment Diagnosis Right CVA Diagnosis Onset Date 03/23/19 Weight Bearing Status Weight Bearing Status Weight Bear as Tolerated M3 OT- IP Subjective and Pain Start: 03/23/19 19:03 Freq: Status: Active Protocol: Document 03/23/19 19:03 [facility] (Rec: 03/23/19 19:32 [facility] [id number]) OT- Subjective Occupational Therapy Visit Type Type Initial Evaluation Visit Start Time 09:25 Visit Stop Time 10:10 Notes Pt taken to [facility] and therefore had to see pt in PM to complete assessments [id number] . Occupational Therapy Visit Comments Patient Comments Pt agreeable to get up. Pt states that she is very tired and has not slept. Patient/Caregiver Goals Pt wanting to go home. OT Pain Assessment Pain When Pain Assessed At Rest Pain Present Pain Present Denied Pain M4 OT- IP ADL's Start: 03/23/19 19:03 Freq: Status: Active Protocol: Document 03/23/19 19:03 [facility] (Rec: 03/23/19 19:32 [facility] [id number]) OT [id number] General Evaluation Self-Feeding Ability Independent OT ADL-Grooming General Evaluation Grooming Ability Standby Assistance Areas Needing Assistance Retrieving/Set-up of Grooming Items OT ADL-Oral Care General Eval Oral Care Ability Independent OT ADL-Dressing Comments OT Dressing Comments not completed OT ADL-Toileting General Evaluation Toileting Ability Standby Assistance OT ADL-Bathing Comments OT Bathing Comments Pt not wanting to shower at this time. M5 OT- IP IADL's Start: 03/23/19 19:03 Freq: Status: Active Protocol: Document 03/23/19 19:03 [facility] (Rec: 03/23/19 19:32 [facility] [id number]) OT-Instrumental Activities of Daily Living Medication Management Medication Management Comments Pt states prior does her own medications. Money Management Money Management Caregiver Provides Assistance Meal Preparation Meal Preparation Comments Pt states cooks at home. Managing Editor Managing Editor Comments Pt states does all IADL needs. M6 OT- IP Functional Cognition Start: 03/23/19 19:03 Freq: Status: Active Protocol: Document 03/23/19 19:03 [facility] (Rec: 03/23/19 19:32 [facility] [id number]) Cognitive Factors Limiting Selfcare Function Cognitive Ability Level of Alertness Alert Patient Orientation Name Age Birthday Month Date Year Day of Week Place Situation Attention Span Ability Capable of Focused Attention Capable of Sustained Attention Ability to Follow Commands Able to Follow One Step Commands Able to Follow Multi-Step Commands Memory Description No Deficits Noted Safety Awareness Underestimates Need for Assistance Problem Solving Ability Needs Assist to Identify Solutions Executive Function Ability Unable to Remember Details Cognitive Tests SLUMS Pt score 24/30 normal score of her education is 27/30, pt's score implies mild cognitive deficits. Pt does state prior has decreased memory and has to write things down often. ACL Pt scored 4.4/6/0 on ACL, however score may not be accurate as pt after trying the 3rd stitch just gave up and was too tired, therefore best to try again tomorrow. A score of 4.4 indicate pt lives with someone who does a daily check on the environment , removes safety hazzards and help solving new problems. Safe driving score is 5.6/6.0 Cognitive Comments Cognitive Assessment Comments Pt scored 144 seconds on [place] Making B which implies significant impairment for visual attention, task sequencing, speed of processing, executive function , and mental flexibility. per [employer] a score greater than 180seconds implies person likely to get into a car accident. OT- Vision and Hearing OT- Hearing Assessment OT- Hearing Assessment WFL OT- Vision Assessment Visual Convergence Impaired Visual Trejo WFL M7 OT- IP Mobility and Balance Start: 03/23/19 19:03 Freq: Status: Active Protocol: Document 03/23/19 19:03 [facility] (Rec: 03/23/19 19:32 [facility] [id number]) OT- Bed Mobility Assessment Supine to Sit Supine to Sit Assist Standby Assistance Sit to Supine Sit to Supine Assist Standby Assistance Scooting Scooting to Edge of Bed Standby Assistance Scooting Up and Down in Bed Standby Assistance OT-Transfer Assessment Sit to and From Stand Sit to and from Stand Standby Assistance Transfers Transfer Ability Contact Guard Assistance Minimal Assistance Technique Transfer Destination Bed Chair Toilet Devices Transfer Assistive Devices Gait Belt Front Wheeled Walker Comments Mobility Comments Pt tends to cross her right leg over while she walks, PT able to trial SPC with pt but safer to use FWW now. OT- Balance Assessment Sitting Balance and Reactions Static Sitting Balance Ability Normal Dynamic Sitting Balance Ability Good Standing Balance and Reactions Static Standing Balance Ability Fair M8 OT- IP Objective Assessments Start: 03/23/19 19:03 Freq: Status: Active Protocol: Document 03/23/19 19:03 [facility] (Rec: 03/23/19 19:32 [facility] [id number]) OT Gross Range of Motion Upper Extremity Range of Motion Assessment Within Functional Limits OT Strength Comments Strength Comments RUE 4/5, LUE4-/5 OT- Coordination Assessment Upper Extremity Finger to Nose Test Within Functional Limits Comments Coordination Comments To assess in more detail tomorrow. OT-Muscle Tone Assessment Muscle Tone WNL Yes OT Sensation Assessment Comments Summary Comments Intact for light touch. M9 OT- IP Assessment and Plan Start: 03/23/19 19:03 Freq: Status: Active Protocol: Document 03/23/19 19:03 [facility] (Rec: 03/23/19 19:32 [facility] [email or web address]) OT Summary Assessment and Plan Potential Rehabilitation Potential Good Analytic Complexity at Evaluation Low Summary OT Impairments Strength Balance Functional Cognition Functional Mobility Grooming Dressing Toileting Bathing Toilet Transfers Shower Transfers Progress Towards Goals Slow Progress due to Medical Issues Assessment Summary Pt low complexity and main barrier is decrease dynamic balance and having loss of balance and now needing use of FWW for getting around. Pt appears to have mild cognitive deficits where as baseline completely independent for all needs. Pt insistent on going home, pt would benefit from outp t therapy . To do caregiver training with pt's prior to discharge. Goals Grooming Goal Independent Dressing Goal Independent Toileting Goal Independent Bathing Goal Standby Assistance Toilet Transfer Goal Standby Assistance Shower Transfer Goal Contact Guard Assistance Patient/Caregiver Education Goal Caregiver Independent Assisting Patient Days to Meet Goals 3 Frequency of Treatment Frequency Of Treatment Once a Day Treatment Plan OT Treatment Plan ADL Training Functional Cognition Training Functional Mobility Patient/Family Education Discharge Planning Other Treatment Recommendations and Next CAregiver training, shower Treatment Focus Discharge Recommendations OT Discharge Recommendations Home with 13/04 Assist Outpatient PT Home Equipment Needs FWW, shower chair
[2019-03-23] MEDS: ATORVASTATIN 20 MG TABLET 40 MG PO (21:04)
--- NOTE | 2019-03-24 00:21 | PC.NURSE ---
Ethylene Compressor Operator Note: 0015: Pt awake, states she is unable to sleep due to uncomfortable bed. Assisted up to bathroom, voided, passed large amt flatus. Assisted with clara care, no stool or blood noted. Bed changed for her comfort. Assisted back to bed. IV in place in rt AC with NS infusing at 125cc/hr. Vital signs stable.
--- NOTE | 2019-03-24 00:28 | PC.NURSE ---
Suture Winder Hand Note: 0000: Resting in bed, easily arousable. Vital signs stable. Speech is clear and no facial droop noted. NIH 0. Pt denies pain or discomfort. IV in place in lt AC with NS infusing at 75cc/hr.
[2019-03-24 05:00] VITALS: BP 129/76; PULSE 64; RESP 16; TEMP 36.6; O2SAT 97
[2019-03-24] MEDS: SODIUM CHLORIDE 0.9% 1,000 ML 75 ML IV (05:40)
[2019-03-24 06:38] LABS: Add Manual Diff / Slide Review NO; Basophils Absolute Auto 100 /uL (0-100); Basophils Percent Auto 1.2 % (0-2); Eosinophils Absolute Auto 100 /uL (0-450); Eosinophils Percent Auto 2.3 % (2-4); Hematocrit 39.7 % (36-46); Hemoglobin 12.9 g/dL (12.0-16.0); Lymphocytes Absolute Auto 1800 /uL (1100-4500); Lymphocytes Percent Auto 32.8 % (25-40); Mean Corpuscular HGB Conc 32.6 % (30-36); Mean Corpuscular Hemoglobin 25.6 PG (26-34); Mean Corpuscular Volume 78.5 fL (80-100); Monocytes Absolute Auto 400 /uL (0-900); Monocytes Percent Auto 6.8 % (3-14); Neutrophils Absolute Auto 3200 /uL (1500-7000); Neutrophils Percent Auto 56.9 % (50-75); Platelet Count 210 X10^3/uL (150-400); Red Blood Cell Count 5.05 X10^6/uL (4.0-5.2); Red Cell Distribution Width 14.7 % (11.6-14.8); White Blood Cell Count 5.6 X10^3/uL (4.5-11.0)
[2019-03-24 07:01] LABS: BUN Creatinine Ratio 17.1 (6-22); Blood Urea Nitrogen 12 mg/dL (7-17); Calcium 8.7 mg/dL (8.4-10.2); Carbon Dioxide 24 mmol/L (22-32); Chloride 114 mmol/L (98-107); Estimated Glomerular Filt Rate > 60.0 mL/min (>60); Glucose 100 mg/dL (80-110); HEMOLYSIS < 15 (0-50); Potassium 3.7 mmol/L (3.4-5.1); Sodium 143 mmol/L (137-145)
[2019-03-24 07:36] LABS: Thyroid Stimulating Hormone 3.53 uIU/mL (0.47-4.68)
--- NOTE | 2019-03-24 08:29 | DI.ECHO.S_ITS ---
[facility] +---------+ : : [address] : [place] : : : : [id number] : : : : Phone: [phone] Echocardiogram Report + + :Name[facility] LISA JUSTIN [facility] Date: [facility]24/2019 : [id number] : Gender: Female : :: 1935 Age: 83 yrs BP: 138/78 mmHg: :Reason For Study: CVA (ASSESS FOR PFO WITH BUBBLE) : :Ordering Physician: Feliberto : :Hospitalist Performed By: Sonja Cyr : :Referring: KYLEIGH GOODMAN : + + Interpretation Summary A small number of bubbles are visualized in the left atrium 5 beats after right atrial opacification with Valsalva. This is nonspecific for a possible small patent foramen ovale, pulmonary AV malformation, or normal rapid pulmonary transit. Visualization of bubbles within 3 beats is considered an abnormal bubble study. Procedure: A limited 2D echocardigram with agitated saline bubble injection is performed to assess for PFO. A complete echocardiogram was done yesterday without bubble, therefore, reordered for bubble only today. The study quality was technically adequate. Comparison is made with the echocardiogram of 03/23/2019. The patient was in normal sinus rhythm during the exam. Atria: A small number of bubbles are visualized in the left atrium 5 beats after right atrial opacification with Valsalva. This is nonspecific for a possible small patent foramen ovale, pulmonary AV malformation, or normal rapid pulmonary transit. Visualization of bubbles within 3 beats is considered an abnormal bubble study. Reading Physician:ARELI
[2019-03-24] MEDS: PARoxetine 10 MG TABLET PO (08:44)
[2019-03-24] MEDS: ASPIRIN EC 81 MG TABLET PO (08:44)
[2019-03-24 09:00] VITALS: BP 138/78; PULSE 86; RESP 16; TEMP 35.9; O2SAT 96
--- NOTE | 2019-03-24 10:35 | PT.IPTN ---
Current Diagnoses Cerebral infarction, unspecified (03/23/19) Physical Therapy Treatment Note M2 PT-IP Current Condition Start: 03/23/19 11:32 Freq: NEEDED Status: Active Protocol: Document 03/23/19 09:25 AB (Rec: 03/23/19 11:54 AB [id number]) Physical Therapy Current Condition Current Condition Evaluation Date 03/23/19 Treatment Diagnosis CVA; difficulty in walking Onset Date 03/23/19 Precautions Other Precautions falls M3 PT-IP Subjective Start: 03/23/19 11:32 Freq: NEEDED Status: Active Protocol: Document 03/24/19 10:35 [facility] (Rec: 03/24/19 11:41 [facility]GD [id number]) Subjective Physical Therapy Visit Type Type Treatment Note Visit Start Time 10:10 Visit Stop Time 10:35 Total Visit Minutes 25 Number of DIGITAL OPERATIONS ANALYST Visits 1 Physical Therapy Visit Comments Patient Comments Pt hopes to go home soon. M4 PT-IP Mobility and Gait Start: 03/23/19 11:32 Freq: NEEDED Status: Active Protocol: Document 03/24/19 10:35 [facility] (Rec: 03/24/19 11:41 GGD [id number]) PT-Bed Mobility Assessment Supine to Sit Supine to Sit Independent Sit to Supine Sit to Supine Independent Scooting Scooting to Edge of Bed Independent PT-Transfer Assessment Sit to and From Stand Sit to and from Stand Standby Assistance Use of Upper Extremities Equipment Transfer Assistive Device None Gait Belt Front Wheeled Walker Orthotic/Prosthetic Devices or Brace: No Transfers Transfer Destination Chair Transfer Ability Level of Assist Standby Assistance Gait Assessment Gait Gait Assistance Required: Standby Assistance Contact Guard Assist Distance (Feet) 160 Able to Maintain Weight Bearing Status Yes During Gait Assistive Devices Assistive Device None Gait Belt Front Wheeled Walker Orthotic/Prosthetic Devices or Brace: No Gait Deviations General Gait Pattern Antalgic Decreased Stride Length Decreased Feet Clearance Narrow Based Gait Factors Limiting Gait Function Factors Limiting Gait Function Decreased Activity Tolerance Decreased Strength Poor Balance Comments Gait Comments Pt ambulated 80 feet with FWW with SBA and then 80 feet without AD with CGA. She had mild gait deviations with head turns. Stair Climbing Assessment Evaluation Level of Assist On Stairs Contact Guard Assistance Devices Stair Climbing Assistive Devices Left Railing Right Railing Technique/Endurance Stair Climbing Direction Ascend and Descend Number of Steps Climbed 3 Stair Climbing Set # Repetitions (reps) 1 M5 PT-IP Objective Assessments Start: 03/23/19 11:32 Freq: NEEDED Status: Active Protocol: Document 03/23/19 09:25 [facility] (Rec: 03/23/19 11:54 AB [id number]) Orientation Orientation/Cognition Level of Alertness Alert Orientation Name Age Birthday Date Place Situation Language Function Ability No Deficits Noted Memory Description No Deficits Noted Gross Range of Motion Lower Extremity ROM Assessment Within Functional Limits Strength Lower Extremity Strength Assessment Within Functional Limits Sensation Assessment Sensation Gross Sensation WNL Muscle Tone Muscle Tone WNL Yes M6 PT-IP Treatment Start: 03/23/19 11:32 Freq: NEEDED Status: Active Protocol: Document 03/24/19 10:35 [facility]GD (Rec: 03/24/19 11:41 GGD [id number]) Physical Therapy Treatment Other Treatments Other Treatment Performed standing balance NBOS with EO, head turns, tandem with head truns and SLS. M7 PT-IP Assessment and Plan Start: 03/23/19 11:32 Freq: NEEDED Status: Active Protocol: Document 03/24/19 10:35 [facility]GD (Rec: 03/24/19 11:41 GGD [id number]) PT Summary Assessment and Plan Summary Assessment Summary Pt improving with mobility and balance. She was safe with gait with and without AD. She did have decrease in gait pace with head turns, but no LOB. Frequency of Treatment Frequency Of Treatment Twice a Day Treatment Plan Physical Therapy Treatment Plan Bed Mobility Training Transfer Training Gait Training Therapeutic Exercise Balance Retraining Discharge Planning Neuromuscular Re-ed Coordination Retraining Manual Therapy Other Recommendations and Next Treatment balance, dynamic gait with SPC Focus Recommendations To Nursing Amount of Assist Needed 1 Person Assist Discharge Recommendations PT Discharge Recommendations Home with Assistance Outpatient PT
--- NOTE | 2019-03-24 12:11 | P.DS_ITS ---
History of Present Illness Date Patient Seen: 03/24/19 Time Patient Seen: 12:06 Chief complaint: Lt Side Deficit Narrative: 83-year-old female w/ PMH of subarachnoid hemorrhage (1991) and silent migraines presented to the ED on 03/23/2019 (0354 am, triaged) out of concern for stroke-like symptoms. Specifically, patient reported developing left upper and lower extremity weakness. Symptoms initially noted on 03/22/2019 at 12:00 p.m. Patient did not assume symptoms as concerning and proceeded with her day. She went to sleep and work up at 3:00 a.m. to use the restroom. Vianca ent fell while attempting to ambulate. Prior to the fall patient reports gait instability and difficulty with balance. Denied loss of consciousness, although she did not seem to have clear recollection of the event. Denied injury to the head. Patient's fall was heard by her . EMS was summoned for help. In field and per triage note, patient was observed having left-sided facial weakness and difficulty speaking. Patient has a history silent migraines. Experiences migraine auras. Typically auras of the silent migraine involve change in vision or loss of vision. Noted a history of anxiety and depression. Reportd being on paxil for over 10 years. In the past 2 months patient has been trying to wean herself off. Went from 20 mg to 10 mg few little over a month and notes taking only two doses this week. Also, in the past year patient reported having elevated blood pressures with a noted SBP range between 130-140 mmHg. Endorses drinking 1 glass of wine nightly. No prior current history of tobacco or recreational drug use. Patient denies history of seizures. Denies prior injury to the head. Denies syncopal events. She does not have a history of heart disease, cardiac arrhythmias, cerebrovascular events, vertigo, diabetes, or thrombosis. 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 Wade), final read pending. Patient Received ASA 324 mg in ED and admitted for further work up of TIA vs CVA Once admitted, patient was placed on telemetry for further monitoring. MR protocol was completed which revealed: BRAIN MRI: 1. Punctate region of increased restricted diffusion within the right parietal lobe consistent with acute or subacute infarct. This finding was discussed with Dr. Moreira at 11:10 AM on 03/23/19. 2. No other acute intracranial findings. 3. Extensive findings likely associated with chronic microvascular ischemic changes. BRAIN MR ANGIOGRAM: 1. No stenosis, occlusion, or aneurysm. NECK MR ANGIOGRAM: 1. No stenosis, occlusion, or aneurysm. Echocardiogram, although without bubble study was performed which revealed: 1) Normal left ventricular thickness, size, wall motion, and systolic function (EF 60-65%). 2) Normal right ventricular size and function. 3) There is mild to moderate aortic regurgitation. 4) Hypertension present during the study (BP 183/71mmHg). 5) No prior Echo available for comparison. Echocardiogram was later re-done on 03/24/2019 for the bubble study portion, however the results were not available at the time of the discharge Lipid panel revealed elevated LDL of 122, cholesterol 196, triglycerides 116, HDL 51. Hemoglobin A1c was normal at 5.2 TSH levels were normal at 3.53 Patient initially had residual left sided weakness, which progressively has improved during the hospitalization. Initially, Physical therapy recommended home with assistance. However as the time progressed and patient's condition improved, physical therapy suggested that patient will be safe to go home on her own but should follow up with primary care doctor for setup of outpatient PT. Patient's BP intially was elevated however decreased to the range of 129-138/64-78. Therefore patient will be started on low dose Lisinopril therapy 2.5mg PO Daily Patient was discharged on aspirin 81 mg p.o. daily as well as atorvastatin 40 mg p.o. daily and Lisinopril 2.5mg PO Daily. She is to follow up with her primary care provider within 7 days of discharge regarding echocardiogram with bubble results, as well as setup of outpatient PT. Status at Discharge Cognitive/behavioral status at discharge: oriented Functional status at discharge: independent ambulation Overall status at discharge: patient is progressing back to baseline Time Spent with Patient Greater than 30 minutes Exam Vital Signs (past 8 hours): - 03/24/19 05:00 03/24/19 09:00 Temperature 97.8 F 96.6 F L Pulse Rate 64 86 Respiratory Rate 16 16 Blood Pressure 129/76 138/78 Pulse Oximetry 97 96 Oxygen Delivery Method Room Air Oxygen Flow Rate 0 Narrative Exam Narrative: Constitutional: NAD Neurologic: AOx3, no facial asymmetry, sensation intact, no tremmor Head: NC, AT Eyes: PERRL, EOMI BL Ears: external ears normal, no otorrhea Nose: external nose normal, no rhinorrhea or epistaxis Throat: moist mucous membranes, oropharynx w/o exudate Neck: no masses, lymphadenopathy, or JVD Chest / Respiratory: equal chest rise, unlabored respiratory effort, CTA BL no rrw Heart / CV: S1S2, no murmur or gallops Abdomen / GI: round, NT, ND, + BS, no organomegaly : no suprapubic tenderness, no CVA Peripheral / Vascular: warm to touch, DP and PT pulses palpable, no edema Musc: full ROM of upper and lower extremities, adequate muscle tone and bulk. LLE weakness improving, drift is almost gone Skin: no ecchymosis or suspicious lesions / ulcers Objective Labs Result Diagrams: 03/24/19 06:26 03/24/19 06:26 Labs: Laboratory Results - last 24 hr 03/24/19 03/24/19 03/24/19 06:26 06:26 06:26 WBC 5.6 RBC 5.05 Hgb 12.9 Hct 39.7 MCV 78.5 L MCH 25.6 L MCHC 32.6 RDW 14.7 Plt Count 210 Neut % (Auto) 56.9 Lymph % (Auto) 32.8 [place] % (Auto) 6.8 Eos % (Auto) 2.3 Baso % (Auto) 1.2 Neut # (Auto) 3200 Lymph # (Auto) 1800 [place] # (Auto) 400 Eos # (Auto) 100 Baso # (Auto) 100 Sodium 143 Potassium 3.7 Chloride 114 H Carbon Dioxide 24 BUN 12 Creatinine 0.70 Estimated GFR > 60.0 BUN/Creatinine Ratio 17.1 Glucose 100 Calcium 8.7 TSH 3.53 Discharge Plan Discharge Plan Patient Disposition: Home Discharge Med Rec/Prescriptions Prescriptions: New atorvastatin [Lipitor] 20 mg Tablet 40 mg PO BEDTIME Qty: 30 RF: 0 aspirin 81 mg Tablet,Delayed Release (Dr/Ec) 81 mg PO DAILY Qty: 30 RF: 0 lisinopril 2.5 mg tablet 2.5 mg PO DAILY Qty: 30 RF: 0 Continued paroxetine HCl 20 mg tablet 1 tab PO DAILY RF: 0 Follow up/Referrals: Negro Newell MD [Primary Care Provider] - Provider Discharge Instructions Diet: Regular Activity: As tolerated. Need outpatient Physical therapy Visit Report/Discharge Packet Instructions: DI for Transient Ischemic Attack Visit Report Forms: Stroke Signs & Symptoms Discharge Data Primary Care Provider: Negor Newell Attending Provider: Constantin Medrano Admit Date/Time: 03/23/19 05:36 Quality VTE Deep Vein Thrombosis/Pulmonary Embolism Present on Admission: No
[2019-03-24 12:30] LABS: Alanine Aminotransferase 15 IU/L (9-52); Albumin 3.4 g/dL (3.5-5.0); Albumin Globulin Ratio 1.3 (1.0-2.8); Alkaline Phosphatase 44 U/L (38-126); Aspartate Aminotransferase 20 IU/L (14-36); Bilirubin Total 1.4 mg/dL (0.2-1.3); Bilirubin Unconjugated 1.2 mg/dL (0.0-1.1); Globulin 2.7 g/dL (1.7-4.1); HEMOLYSIS < 15 (0-50); Total Protein 6.1 g/dL (6.3-8.2)
--- NOTE | 2019-03-24 13:04 | PC.NURSE ---
Day shift: Pt left unit w/ this proposal writer via WC to private car driven by Pt's spouse at approx 1300. Paperwork signed and all questions answered. Pt has MD scrips and all personal belongings.
--- NOTE | 2019-03-24 13:25 | CM.DPC ---
DCP Discharge Home Per MD, pt is medically stable to d/c home today via spouse POV and no identified barriers to discharge. Per RN, pt plans to d/c home today and no concerns at this time. Per PT, pt completed final PT this morning and CG training and recommend safe d/c home with outpt PT. Plan: Patient to discharge home today via spouse POV and no SW needs at this time. ROYA Rubio
== END 2019-03-24 13:05 | disposition home or self-care (01) | DRG 65 ==
LOC: ED 05:16 → AC 09:50
PROVIDERS: Internal Medicine; Admitting Provider Nurse Practitioner Gerontology; Emergency Provider Emergency Medicine; PCP Family Medicine; Visit Provider Nurse Practitioner Gerontology
DX: I63.9 Cerebral infarction, unspecified (principal); G81.94 Hemiplegia, unspecified affecting left nondominant side; F32.9 Major depressive disorder, single episode, unspecified; F41.9 Anxiety disorder, unspecified; G43.109 Migraine with aura, not intractable, without status migrainosus; W18.30XA Fall on same level, unspecified, initial encounter
CPT/HCPCS: 36415; 70450; 70548; 70553; 80048; 80061; 80076; 80305; 81001; 83036; 84443; 85025; 85610; 85730; 87077; 87086; 92610; 93005; 93010; 93306; 93307; 96360; 96361; 97112; 97116; 97161; 97165; 97530; 99283; 99285; A9579

== ENCOUNTER 2022-10-07 10:40 | Inpatient (IN) | payer MEDICARE, OTHER, SELFPAY ==
[2019-03-23 06:50] VITALS: BMI 24.5
[2022-10-07] VITALS (17 sets, daily range): BP systolic 145–184; BP diastolic 64–82; PULSE 69–88; RESP 17–20; TEMP 36.1–36.9; O2SAT 93–99; BMI 20.7
--- NOTE | 2022-10-07 11:02 | PC.NURSE ---
looked in waiting rooms and called. no answer.
--- NOTE | 2022-10-07 11:56 | PC.NURSE ---
called patient. no answer. registration is going to the cafeteria to look
--- NOTE | 2022-10-07 12:24 | DI.RAD.S_ITS ---
PROCEDURE: XR HIP W PEL IF DONE LT 2V INDICATIONS: fall with left hip pain TECHNIQUE: AP pelvis with lateral view(s) of the left hip(s). COMPARISON: None. FINDINGS: Bones: There is slight irregularity along the subcapital region of the femoral neck. Soft tissues: The visualized bowel gas pattern is normal. No suspicious soft tissue calcifications. IMPRESSION: Slight irregularity along the subcapital femoral neck raising suspicion for fracture. CT pelvis is recommended for further evaluation. Dictated by: Melita Ruano M.D. on 10/07/2022 at 13:53 Approved by: Melita Ruano M.D. on 10/07/2022 at 13:54
--- NOTE | 2022-10-07 12:25 | ED_ITS ---
HPI - General Adult General Chief complaint: Extremity Injury, Lower Stated complaint: fall hit LT hip T-2 Time Seen by Provider: 10/07/22 10:47 History of Present Illness HPI narrative: 87-year-old female nonsmoker with history of hypertension, hyperlipidemia presents with her with a chief complaint of left hip pain as a consequence of a fall suffered on Thursday. She had been in her normal state of health and denies prodromal symptoms such as dizziness, weakness or lighthead edness. 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 She denies head, neck or back pain or injury. She is not anticoagulated. She denies any chest pain or shortness of breath. She is had no nausea, vomiting or diarrhea. She denies urinary complaints. She has no lower extremity weakness, numbness or tingling. She denies any injury to knee ankle or foot. She states that when ambulating or trying to walk she has exquisite pain and when resting she does relatively well Related Data Home Medications Medication Instructions Recorded Confirmed paroxetine HCl 20 mg tablet 1 tab PO DAILY 03/23/19 10/07/22 atorvastatin 20 mg tablet (Lipitor) 10 mg PO Q OTHER DAY 10/07/22 10/08/22 lisinopril 2.5 mg tablet 2.5 mg PO DAILY 10/07/22 10/07/22 Allergies Allergy/AdvReac Type Severity Reaction Status Date / Time No Known Drug Allergies Allergy Verified 10/08/22 10:33 Review of Systems Review of Systems Narrative: GENERAL: Denies chills, fatigue, malaise, fever, sweats. HEENT: Denies sinus pain, ear pain, sore throat, difficulty swallowing, dizziness. RESPIRATORY: Denies dyspnea, cough, wheezing, hemoptysis, sputum. CARDIOVASCULAR: Denies chest pain, palpitations, orthopnea, edema, GASTROINTESTINAL: Denies nausea, vomiting, abdominal pain, diarrhea, constipation, melena. : Denies dysuria, frequency, incontinence, hematuria, urinary retention. MUSCULOSKELETAL: See HPI SKIN: Denies rash, skin lesions, or other NEUROLOGIC: Denies weakness, headache, numbness, change in speech, confusion, seizures, incoordination. PSYCHIATRIC: No concerning psychosocial issues. 12 point review of systems is negative except for those stated above Patient History Medical History Anxiety and depression Migraine aura without headache Subarachnoid hemorrhage Surgical History History of cholecystectomy History of tonsillectomy Family History Mother Stroke Vertigo Father Heart disease Myocardial infarct Social History household members: spouse Smoking Status: Never smoker alcohol intake: current Smoking Status: Never smoker alcohol intake frequency: 0-2 drinks per day Substance Use Type: does not use Exam Narrative Exam Narrative: GENERAL: [87] year old patient appears stated age. Well-developed patient, in mild distress. HEAD: Atraumatic. Normocephalic. EYES: Pupils equal round and reactive. Extraocular motions intact. No scleral icterus. No injection or drainage. ENT: Nose without bleeding, purulent drainage. Throat without erythema, tonsillar hypertrophy or exudate. Airway patent. NECK: Trachea midline. Non tender CARDIOVASCULAR: Regular rate and rhythm without murmurs, gallops, or rubs. RESPIRATORY: Clear to auscultation. Breath sounds equal bilaterally. No wheezes, rales, or rhonchi. GASTROINTESTINAL: Abdomen soft, non-tender, nondistended. EXTREMITIES: minimal pain on palpation, no pain with axial loading of left hip nor with internal or external rotation. Patient does have significant pain with active range of motion through the hip, but no pain passively. No pain, swelling or obvious external manifestation of injury BACK: Nontender without deformity or crepitance. No flank tenderness. NEURO: AOx3. SKIN: No rash or erythema of visible areas Initial Vital Signs Initial Vital Signs: Vital Signs Temperature 98.5 F 10/07/22 12:27 Pulse Rate 88 10/07/22 12:27 Respiratory Rate 20 10/07/22 12:27 Blood Pressure 174/81 H 10/07/22 12:27 Pulse Oximetry 98 10/07/22 12:27 Oxygen Delivery Method 10/07/22 12:27 Course Orders Ordered: ED Orders 10/08/22 06:16 Basic Metabolic Panel DAILY Complete Blood Count AUTO DIFF DAILY Magnesium DAILY 10/09/22 05:00 Basic Metabolic Panel DAILY Complete Blood Count AUTO DIFF DAILY Magnesium DAILY 10/10/22 05:00 Basic Metabolic Panel DAILY Complete Blood Count AUTO DIFF DAILY Magnesium DAILY Atorvastatin Calcium (Atorvastatin 20 Mg Tablet) 40 mg PO DAILY [facility] Last Admin: 10/08/22 09:33 Dose: Not Given Documented By: GISELLE Hydromorphone HCl (Hydromorphone 1 Mg Inj) 1 mg IV Q4H PRN PRN Reason: Pain, Severe (7-10) Lactated Ringer's (Lactated Ringers) 1,000 mls @ 42 mls/hr IV NOW ONE Stop: 10/09/22 10:37 Last Admin: 10/08/22 10:49 Dose: 42 mls/hr Documented By: CAROLINE Cefazolin Sodium/Dextrose (Ancef) 100 mls @ 200 mls/hr IV NOW ONE Stop: 10/08/22 11:26 Lisinopril (Lisinopril 5 Mg Tablet) 2.5 mg PO DAILY [facility] Last Admin: 10/08/22 09:33 Dose: Not Given Documented By: GISELLE Naloxone HCl (Naloxone 0.4 Mg/Ml Vial) 0.2 mg IV Q2MIN PRN PRN Reason: Opiate Reversal Ondansetron HCl (Ondansetron 4 Mg/2 Ml Inj) 4 mg IV Q8HR PRN PRN Reason: Nausea And Vomiting Paroxetine HCl (Paroxetine 20 Mg Tablet) 20 mg PO DAILY [facility] Last Admin: 10/08/22 09:33 Dose: Not Given Documented By: GISELLE Discontinued Medications Sodium Chloride (Normal Saline 0.9%) 500 mls @ 1,000 mls/hr IV BOLUS ONE Stop: 10/07/22 15:51 Last Infusion: 10/07/22 16:36 Dose: 0 mls/hr Documented By: Admin: 10/07/22 15:45 Dose: 1,000 mls/hr Documented By: JOHN Consultations Consultation #1: Discussed with on-call orthopedist (Dr. Candelaria), requests patient be kept NPO, admitted to hospitalist, possible OR tonight versus tomorrow Consultation #2: Hospitalist happy to accept Vital Signs Vital signs: Vital Signs - 8 hr 10/07/22 12:27 10/07/22 13:31 10/07/22 13:45 Temperature 98.5 F Pulse Rate 88 Pulse Rate [Left Dorsalis Pedis] 85 Respiratory Rate 20 Blood Pressure 174/81 H Pulse Oximetry 98 97 Oxygen Delivery Method Room Air Room Air 10/07/22 13:49 10/07/22 13:49 10/07/22 14:05 Temperature Pulse Rate 77 79 Pulse Rate [Left Dorsalis Pedis] Respiratory Rate Blood Pressure 163/69 H Pulse Oximetry 98 99 Oxygen Delivery Method Room Air 10/07/22 14:30 10/07/22 14:57 10/07/22 14:57 Temperature Pulse Rate 84 78 Pulse Rate [Left Dorsalis Pedis] Respiratory Rate Blood Pressure 159/70 H Pulse Oximetry 96 97 Oxygen Delivery Method 10/07/22 15:00 10/07/22 15:00 10/07/22 15:30 Temperature Pulse Rate 78 Pulse Rate [Left Dorsalis Pedis] Respiratory Rate Blood Pressure 153/64 H 176/74 H Pulse Oximetry 96 Oxygen Delivery Method Room Air 10/07/22 15:30 Temperature Pulse Rate 80 Pulse Rate [Left Dorsalis Pedis] Respiratory Rate Blood Pressure Pulse Oximetry 95 Oxygen Delivery Method Room Air Medical Decision Making Lab Data Result diagrams: 10/08/22 06:16 10/08/22 06:16 Labs: Lab Results 10/07/22 10/07/22 10/07/22 Range/Units 15:23 15:26 15:26 WBC 7.1 (4.5-11.0) X10^3/uL RBC 4.72 (4.0-5.2) X10^6/uL Hgb 11.8 L (12.0-16.0) g/dL Hct 36.1 (36-46) % MCV 76.6 L (80-100) fL MCH 25.0 L (26-34) PG MCHC 32.7 (30-36) % RDW 14.8 (11.6-14.8) % Plt Count 216 (150-400) X10^3/uL Neut % (Auto) 69.7 (50-75) % Lymph % (Auto) 20.7 L (25-40) % [place] % (Auto) 8.0 (3-14) % Eos % (Auto) 1.0 L (2-4) % Baso % (Auto) 0.6 (0-2) % Neut # (Auto) 4900 (5562-1518) /uL Lymph # (Auto) 1500 (5772-6690) /uL [place] # (Auto) 600 (0-900) /uL Eos # (Auto) 100 (0-450) /uL Baso # (Auto) 0 (0-100) /uL Sodium 140 (137-145) mmol/L Potassium 3.7 (3.4-5.1) mmol/L Chloride 105 (98-107) mmol/L Carbon Dioxide 26 (22-32) mmol/L BUN 10 (7-17) mg/dL Creatinine 0.71 (0.52-1.04) mg/dL Estimated GFR > 60 (>60) mL/min BUN/Creatinine Ratio 14.1 (6-22) Glucose 98 (80-110) mg/dL Calcium 9.0 (8.4-10.2) mg/dL Magnesium 1.9 (1.6-2.3) mg/dL SARS-CoV-2 (PCR) Negative (Negative) Imaging Data Pelvis/Hip : Radiologist's Impression: Close Pelvis CT 10/07/22 Hip X-Ray (Signed) Melita Ruano - 10/07/22 [address]?[place] [address] XRay Report Signed Patient: Jody Hinojosa MR#: [id number] : 1935 Acct:[id number] Age/Sex: 87 / F Date of Service: 10/07/22 Loc: ED Accession Number: [id number] ?? Procedure: XR hip w pel if done LT 2V Ordering Provider: Pk Wade D.O. PROCEDURE:? XR HIP W PEL IF DONE LT 2V ? INDICATIONS:? fall with left hip pain ? TECHNIQUE:? AP pelvis with lateral view(s) of the left hip(s).? ? COMPARISON:? None. ? FINDINGS:? ? Bones:? There is slight irregularity along the subcapital region of the femoral neck. ? Soft tissues:? The visualized bowel gas pattern is normal.? No suspicious soft tissue calcifications.? ? ? IMPRESSION:? Slight irregularity along the subcapital femoral neck raising suspicion for fracture.? CT pelvis is recommended for further evaluation. ? Dictated by: Melita Ruano M.D. on 10/07/2022 at 13:53 ? ? Approved by: Melita Ruano M.D. on 10/07/2022 at 13:54 ? MDM Narrative Medical decision making narrative: [87-year-old female with ground level fall resulting in left hip pain] Multiple etiologies for patient's symptoms considered including, but not limited to: [Hip fracture, femur fracture, pelvic fracture, contusion, dislocation] Prior Charts reviewed: Including prior emergency department visit Labs reviewed and interpreted by myself: No significant abnormal findings Imaging reviewed: Questionable femoral neck fracture on x-ray, confirmed by CT Consultations: Discussed with Orthopedics as well as hospitalist service Pain controlled emergency department, patient will require hospitalization for surgical repair of left hip fracture Findings and plan for admission and surgical intervention discussed with patient who understands and agrees with this plan Discharge Plan Departure Patient Disposition: Admitted As Inpatient Clinical Impression: Fracture of hip, left, closed Admit Date/Time: 10/07/22 17:16 Admit Provider: Ori Le
--- NOTE | 2022-10-07 13:58 | DI.CT.S_ITS ---
PROCEDURE: CT PEL WO CON INDICATIONS: L hip pain s/p fall TECHNIQUE: Noncontrast 3 mm axial sections acquired through the bony pelvis, with coronal and sagittal reformatting. COMPARISON: [facility], CR, XR HIP W PEL IF DONE LT 2V, 10/07/2022, 12:37. FINDINGS: Image quality: Excellent. Bones: There is a mildly impacted subcapital/proximal femoral neck fracture on the left. Remaining osseous structures are intact. Soft tissues: Visualized soft tissues demonstrate nonobstructive gas pattern. Uterus appears markedly prominent given patient's age. IMPRESSION: Mildly impacted subcapital/proximal left femoral neck fracture. Prominent appearance of the uterus possibly related to fibroids. If clinically indicated, further evaluation with ultrasound may be obtained. Dictated by: Melita Ruano M.D. on 10/07/2022 at 14:42 Approved by: Melita Ruano M.D. on 10/07/2022 at 14:44
[2022-10-07 15:40] LABS: Add Manual Diff / Slide Review NO; Basophils Absolute Auto 0 /uL (0-100); Basophils Percent Auto 0.6 % (0-2); Eosinophils Absolute Auto 100 /uL (0-450); Hematocrit 36.1 % (36-46); Hemoglobin 11.8 g/dL (12.0-16.0); Lymphocytes Absolute Auto 1500 /uL (1100-4500); Lymphocytes Percent Auto 20.7 % (25-40); Mean Corpuscular HGB Conc 32.7 % (30-36); Mean Corpuscular Volume 76.6 fL (80-100); Monocytes Absolute Auto 600 /uL (0-900); Neutrophils Absolute Auto 4900 /uL (1500-7000); Neutrophils Percent Auto 69.7 % (50-75); Platelet Count 216 X10^3/uL (150-400); Red Blood Cell Count 4.72 X10^6/uL (4.0-5.2); Red Cell Distribution Width 14.8 % (11.6-14.8); White Blood Cell Count 7.1 X10^3/uL (4.5-11.0)
[2022-10-07] MEDS: SODIUM CHLORIDE 0.9% 500 ML 1000 ML IV (15:45)
[2022-10-07 15:55] LABS: COVID19 -Nasal RAPID Negative (Negative)
[2022-10-07 16:05] LABS: BUN Creatinine Ratio 14.1 (6-22); Blood Urea Nitrogen 10 mg/dL (7-17); Carbon Dioxide 26 mmol/L (22-32); Chloride 105 mmol/L (98-107); Estimated Glomerular Filt Rate > 60 mL/min (>60); Glucose 98 mg/dL (80-110); HEMOLYSIS < 15 (0-50); Magnesium 1.9 mg/dL (1.6-2.3); Potassium 3.7 mmol/L (3.4-5.1); Sodium 140 mmol/L (137-145)
--- NOTE | 2022-10-07 18:35 | P.CONS_ITS ---
History of Present Illness Consult details Date Patient Seen: 10/07/22 Time Patient Seen: 18:35 Chief complaint: fall hit LT hip T-2 Reason for consult: Left impacted femoral neck fracture Requesting provider: Pk Wade Narrative: Jody is a pleasant 87-year-old woman who was attempting to help her ?overweight dog? move onto a bed when she lost her balance and fell, landing on her left hip. She had pain in the hip but remained at home, walking with crutches for 2 days. When the pain did not fully resolve she went to the emergency department at [facility] for evaluation. Radiographs and CT scan have revealed an impacted left femoral neck fracture. Orthopedic consultation has been obtained for definitive management of the fracture. Meds Home Medications and Allergies Home Medications Medication Instructions Recorded Confirmed Type paroxetine HCl 20 mg tablet 1 tab PO DAILY 03/23/19 03/23/19 History aspirin 81 mg tablet,delayed 81 mg PO DAILY #30 tabs 03/24/19 Rx release atorvastatin 20 mg tablet (Lipitor) 40 mg PO BEDTIME #30 tabs 03/24/19 Rx lisinopril 2.5 mg tablet 2.5 mg PO DAILY #30 tabs 03/24/19 Rx Allergies Allergy/AdvReac Type Severity Reaction Status Date / Time No Known Drug Allergies Allergy Verified 03/23/19 04:05 Review of Systems Review of Systems Narrative: She reports she was in her normal state of health without signs of infection, chest pain shortness of breath, abdominal pain change in bowel habits nausea vomiting or neurologic issues prior to her fall. Exam Vital Signs (past 8 hours): - 10/07/22 12:27 10/07/22 13:31 10/07/22 13:45 Temperature 98.5 F Pulse Rate 88 Pulse Rate [Left Dorsalis Pedis] 85 Respiratory Rate 20 Blood Pressure 174/81 H Pulse Oximetry 98 97 Oxygen Delivery Method Room Air Room Air 10/07/22 13:49 10/07/22 13:49 10/07/22 14:05 Temperature Pulse Rate 77 79 Pulse Rate [Left Dorsalis Pedis] Respiratory Rate Blood Pressure 163/69 H Pulse Oximetry 98 99 Oxygen Delivery Method Room Air 10/07/22 14:30 10/07/22 14:57 10/07/22 14:57 Temperature Pulse Rate 84 78 Pulse Rate [Left Dorsalis Pedis] Respiratory Rate Blood Pressure 159/70 H Pulse Oximetry 96 97 Oxygen Delivery Method 10/07/22 15:00 10/07/22 15:00 10/07/22 15:30 Temperature Pulse Rate 78 Pulse Rate [Left Dorsalis Pedis] Respiratory Rate Blood Pressure 153/64 H 176/74 H Pulse Oximetry 96 Oxygen Delivery Method Room Air 10/07/22 15:30 10/07/22 16:00 10/07/22 16:00 Temperature Pulse Rate 80 74 Pulse Rate [Left Dorsalis Pedis] Respiratory Rate Blood Pressure 173/82 H Pulse Oximetry 95 97 Oxygen Delivery Method Room Air Room Air 10/07/22 16:30 10/07/22 16:30 10/07/22 17:00 Temperature Pulse Rate 76 78 Pulse Rate [Left Dorsalis Pedis] Respiratory Rate Blood Pressure 166/73 H Pulse Oximetry 96 97 Oxygen Delivery Method Room Air 10/07/22 17:30 10/07/22 17:30 Temperature Pulse Rate 74 Pulse Rate [Left Dorsalis Pedis] Respiratory Rate Blood Pressure 184/79 H Pulse Oximetry 94 Oxygen Delivery Method Room Air Oxygen Delivery Method Room Air Narrative Exam Narrative: The patient is examined while resting comfortably in bed. Left leg length looks appropriate no significant rotation. No significant skin lesions overlying the proposed incision. Calf is soft. Light touch and motion are intact in the left lower extremity. 2+ posterior tibial pulse. Objective Labs Result Diagrams: 10/07/22 15:26 10/07/22 15:26 Labs: Laboratory Results - last 24 hr 10/07/22 10/07/22 10/07/22 15:23 15:26 15:26 WBC 7.1 RBC 4.72 Hgb 11.8 L Hct 36.1 MCV 76.6 L MCH 25.0 L MCHC 32.7 RDW 14.8 Plt Count 216 Neut % (Auto) 69.7 Lymph % (Auto) 20.7 L [place] % (Auto) 8.0 Eos % (Auto) 1.0 L Baso % (Auto) 0.6 Neut # (Auto) 4900 Lymph # (Auto) 1500 [place] # (Auto) 600 Eos # (Auto) 100 Baso # (Auto) 0 Sodium 140 Potassium 3.7 Chloride 105 Carbon Dioxide 26 BUN 10 Creatinine 0.71 Estimated GFR > 60 BUN/Creatinine Ratio 14.1 Glucose 98 Calcium 9.0 Magnesium 1.9 SARS-CoV-2 (PCR) Negative Radiographs and CT scan from the emergency room today are reviewed. These show an impacted femoral neck fracture. [facility] Medical History Anxiety and depression Migraine aura without headache Subarachnoid hemorrhage Surgical History History of cholecystectomy History of tonsillectomy Family History Mother Stroke Vertigo Father Heart disease Myocardial infarct Social History household members: spouse Tobacco & Substance Use Smoking Status: Never smoker Assessment & Plan Assessment & Plan narrative: The patient is a pleasant relatively healthy 87-year-old woman with a an impacted femoral neck fracture on the left. She has actually been able to stay at home with partial weight-bearing on this for a couple days. We talked about the risks, benefits and alternatives to surgery. I have described a closed reduction and percutaneous pin fixation for the femoral neck. We also discussed the possibility of treating this non operatively, remaining on crutches with toe-touch weight-bearing for 6 weeks. This would obviously not involve the risks of surgery, but would have a slightly increased risk of the fracture displacing which would require hip hemiarthroplasty. She has elected to proceed with a closed reduction and percutaneous pin fixation. Risks discussed included but were not limited to: Failure to improve, loss of fixation requiring eventual revision to hemiarthroplasty, stiffness, infection, nerve damage, deep venous thrombosis, pulmonary embolism, stroke, myocardial infarction, permanent paralysis and . The patient notes that she was told to avoid aspirin and other drugs that cause bleeding after she had a subarachnoid hemorrhage. I have explained to her that the risk of blood clotting after a hip fracture is quite h igh. We will discuss DVT prophylaxis with the medical service postoperatively. She will be allowed to eat tonight. Surgery is planned for tomorrow afternoon. She is been added to the surgical schedule. She is given her signed informed consent after the discussion of risks. COVID-19 COVID-19 status: Negative Result date/Date tested (Pos, Neg/Pending): 10/07/22 Time Spent With Patient Time with patient: 30 to 49 minutes with 50% spent counseling/coordinating care Critical Care time: I spent a total of [] minutes of critical care time on this patient's care today; this time is exclusive of procedural time.
--- NOTE | 2022-10-07 19:44 | PC.NURSE ---
Rec'd Pt from ED. Dr. Candelaria in discussing plan with Pt. Pt settled to bed.
--- NOTE | 2022-10-07 21:25 | P.HP_ITS ---
History of Present Illness History of Present Illness Date Patient Seen: 10/07/22 Time Patient Seen: 21:00 Chief complaint: fall hit LT hip T-2 Narrative: Ms. Hinojosa is an 87W with PMH HTN, HL, CVA who presents to the hospital after a fall. 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 She had pain afterwards. She actually fell two days ago. She had been trying to ambulate but did have significant pain, when at rest her pain is controlled. She did not hit her head and has pain nowhere else currently. In the ED workup was done, vitals notable for afebrile, blood pressure 174/81. Labs notable for WBC 7.1, hgb 11.8, creatinine 0.71. Hip xray read as slight irregularity along subcapital femoral neck. CT pelvis shows left femoral neck fracture. Ortho was consulted and planning for surgery. She was admitted for further treatment. Patient History Medical History Anxiety and depression Migraine aura without headache Subarachnoid hemorrhage Surgical History History of cholecystectomy History of tonsillectomy Family & Social History Family History Mother Stroke Vertigo Father Heart disease Myocardial infarct Social History: household members spouse Prior Living Arrangements House Safety & Behavioral: Feels Safe in Current Yes Environment Been Physically Hurt or No Threatened By a Person Tobacco & Substance use: Smoking Status Never smoker alcohol intake frequency 0-2 drinks per day Substance Use Type does not use Meds Home Medications and Allergies Home Medications Medication Instructions Recorded Confirmed Type paroxetine HCl 20 mg tablet 1 tab PO DAILY 03/23/19 10/07/22 History aspirin 81 mg tablet,delayed 81 mg PO DAILY #30 tabs 03/24/19 Rx release lisinopril 2.5 mg tablet 2.5 mg PO DAILY #30 tabs 03/24/19 10/07/22 Rx atorvastatin 20 mg tablet (Lipitor) 40 mg PO DAILY 10/07/22 10/07/22 History lisinopril 2.5 mg tablet 2.5 mg PO DAILY 10/07/22 10/07/22 History Allergies Allergy/AdvReac Type Severity Reaction Status Date / Time No Known Drug Allergies Allergy Verified 03/23/19 04:05 Review of Systems Review of Systems Narrative: 14 systems reviewed and negative aside from what is noted in HPI Exam Vital Signs (past 8 hours): - 10/07/22 23:15 10/07/22 23:42 10/08/22 03:00 Temperature 97.0 F L Pulse Rate 83 Respiratory Rate 17 Blood Pressure 145/67 H Pulse Oximetry 93 94 94 Oxygen Delivery Method Room Air Room Air Oxygen Flow Rate 0 0 0 Oxygen Delivery Method Room Air Oxygen Flow Rate 0 Narrative Exam Narrative: GEN: no acute distress HEENT: moist mucous membranes, PERRL NECK: trachea midline, no JVD PULM: clear bilaterally, no wheezes, rhonchi, rales CV: regular rate and rhythm, no murmurs ABD: soft, nontender, nondistended, no organomegaly EXT: warm and well perfused, pain to palpation on left hip NEURO: awake, alert, oriented, no focal deficits Objective Labs Result Diagrams: 10/07/22 15:26 10/07/22 15:26 Labs: Laboratory Results - last 24 hr 10/07/22 10/07/22 10/07/22 15:23 15:26 15:26 WBC 7.1 RBC 4.72 Hgb 11.8 L Hct 36.1 MCV 76.6 L MCH 25.0 L MCHC 32.7 RDW 14.8 Plt Count 216 Neut % (Auto) 69.7 Lymph % (Auto) 20.7 L [place] % (Auto) 8.0 Eos % (Auto) 1.0 L Baso % (Auto) 0.6 Neut # (Auto) 4900 Lymph # (Auto) 1500 [place] # (Auto) 600 Eos # (Auto) 100 Baso # (Auto) 0 Sodium 140 Potassium 3.7 Chloride 105 Carbon Dioxide 26 BUN 10 Creatinine 0.71 Estimated GFR > 60 BUN/Creatinine Ratio 14.1 Glucose 98 Calcium 9.0 Magnesium 1.9 SARS-CoV-2 (PCR) Negative Assessment & Plan Assessment & Plan narrative: 1. Left hip fracture -orthopedic surgery consulted, and planning for surgery -NPO for ortho recs -pain control ordered 2. History of CVA -hold aspirin until after surgery -continue statin 3. Hypertension -hold lisinopril 4. Depression -continue paroxetine I did discuss plan of care with patient's nurse and other hospitalist. I have independently reviewed available labs, previous admission/discharge notes, and hip xray and pelvis CT. CODE: DNR/DNI Proxy: Bradly Hinojosa, spouse I have utilized all available resources to reconcile the patient's home medications Time Spent With Patient Critical Care time: I spent a total of [] minutes of critical care time on this patient's care today; this time is exclusive of procedural time. Quality VTE Deep Vein Thrombosis/Pulmonary Embolism Present on Admission: No MIPS - Meds 'Current medications' to include all prescriptions, [id number] products, herbals, cannabis/cannabidiol products, and vitamin/mineral/dietary (nutritional) supplements. I have utilized all available resources to obtain, update, or review the patient?s current medications. [If Yes, STOP here]: Yes
[2022-10-08] VITALS (18 sets, daily range): BP systolic 101–177; BP diastolic 51–79; PULSE 69–95; RESP 12–18; TEMP 36.4–37.6; O2SAT 92–98; BMI 20.1
[2022-10-08 06:36] LABS: Add Manual Diff / Slide Review NO; Basophils Absolute Auto 100 /uL (0-100); Eosinophils Absolute Auto 200 /uL (0-450); Eosinophils Percent Auto 2.7 % (2-4); Hematocrit 33.5 % (36-46); Hemoglobin 11.3 g/dL (12.0-16.0); Lymphocytes Absolute Auto 1400 /uL (1100-4500); Lymphocytes Percent Auto 25.7 % (25-40); Mean Corpuscular HGB Conc 33.7 % (30-36); Mean Corpuscular Hemoglobin 25.6 PG (26-34); Mean Corpuscular Volume 76.1 fL (80-100); Monocytes Absolute Auto 500 /uL (0-900); Monocytes Percent Auto 8.4 % (3-14); Neutrophils Absolute Auto 3500 /uL (1500-7000); Neutrophils Percent Auto 62.2 % (50-75); Platelet Count 199 X10^3/uL (150-400); Red Cell Distribution Width 14.6 % (11.6-14.8); White Blood Cell Count 5.6 X10^3/uL (4.5-11.0)
[2022-10-08 06:44] LABS: BUN Creatinine Ratio 15.4 (6-22); Blood Urea Nitrogen 10 mg/dL (7-17); Calcium 8.3 mg/dL (8.4-10.2); Carbon Dioxide 25 mmol/L (22-32); Chloride 107 mmol/L (98-107); Estimated Glomerular Filt Rate > 60 mL/min (>60); Glucose 93 mg/dL (80-110); HEMOLYSIS < 15 (0-50); Magnesium 1.9 mg/dL (1.6-2.3); Potassium 3.8 mmol/L (3.4-5.1); Sodium 138 mmol/L (137-145)
[2022-10-08] MEDS: LACTATED RINGERS 1,000 ML 42 ML IV (10:49)
--- NOTE | 2022-10-08 10:57 | PM.PREOP ---
Pre-operative Note COVID-19 COVID-19 status: Negative Result date/Date tested (Pos, Neg/Pending): 10/07/22 Interval Note History & Physical reviewed/Exam performed by Physician: Yes Changes to H&P: No
[2022-10-08] MEDS: CEFAZOLIN 2 GM/100 ML PREMIX 100 ML IV ×2 (11:20→20:42)
--- NOTE | 2022-10-08 11:45 | SUR.OPER ---
Head on pillow. Supine on fracture table with operative leg secured in traction. Other leg secured in padded stirrup. Left across chest, secured with sheet and tape. Right arm on padded armboard secrure with foam strap
--- NOTE | 2022-10-08 12:11 | DI.RAD.S_ITS ---
PROCEDURE: XR HIP W PEL IF DONE LT 2V INDICATIONS: HIP PINNING TECHNIQUE: 2 intraoperative views of the hip were acquired. COMPARISON: [facility], CR, XR HIP W PEL IF DONE LT 2V, 10/07/2022, 12:37. FINDINGS: 3 screws at the left hip project in the expected location. Decreased conspicuity of the femoral neck fracture. IMPRESSION: Intraoperative guidance provided. Dictated by: Venancio Barry M.D. on 10/08/2022 at 13:25 Approved by: Venancio Barry M.D. on 10/08/2022 at 13:26
--- NOTE | 2022-10-08 12:18 | PM.OP.1 ---
Operative Date/Time/Diagnoses Date of procedure: 10/08/22 Time of procedure: 12:18 Pre-op diagnosis: Impacted left femoral neck fracture Post-op diagnosis: same Procedure & Clinicians Procedure: Percutaneous screw fixation for left femoral neck fracture Same procedure as scheduled: Yes Indications: The patient is an 87-year-old woman who several days ago injured her left hip sustaining an impacted hip fracture. She attempted to walk on this for a couple of days but was unable to do so without the assistance of crutches. She came to the emergency room where radiographs revealed an impacted fracture. She is agreed to surgery after discussion the risks benefits and alternatives as outlined in my consultation note yesterday. Surgeon: Jorge Candelaria Click Yes if Unassisted: Yes Anesthesia Type: General Operative Notes Findings: Impacted femoral neck fracture Closure Type: primary Specimen(s): none sent Prosthetic devices, grafts, tissues, transplants, or devices: Implants used in this procedure were manufactured by the [employer] and included three 7.3 mm diameter cannulated 16 mm thread length screws measuring 75, 75 and 80 mm in length. Applied: implant(s) Estimated Blood Loss (mL): 10 Blood products transfused: none Procedure in detail: The patient was seen in the preoperative area where she confirmed her left hip was the operative site and this was marked with my initials. She received preoperative antibiotics and was moved to the operating room on her hospital bed. She underwent induction of general anesthetic was then transferred to the fracture table. The left leg was placed in a traction leg hawkins although no significant traction was applied. The right leg was placed in a well leg hawkins and was flexed, internally rotated and slightly abducted to move it out of the way of the C-arm. Radiographic images were obtained in the AP and lateral view to confirm there have been no loss of alignment of the impacted fracture. A inspector timers-out was performed. The lateral aspect of the thigh was prepared with ChloraPrep in the usual fashion and draped with an adherent drape. Under fluoroscopic guidance 3 parallel pins were placed in an inverted triangular arrangement. The position of the pins was verified as being satisfactory in the AP and lateral views of fluoroscopy prior to placing screws. The pins were measured and the length estimated by subtracting 5 mm from the pins that were in the subchondral bone. The screws were then placed using a power screwdriver. The final several turns were done manually. The position of all screws was verified as being appropriate on the AP and lateral views. The inferior screw was slightly short but I felt that adding 5 mm might increase the risk of it entering into the joint. The wounds were irrigated and closed with 4-0 Monocryl and Steri-Strips. Dressing of sterile 4x4s and Tegaderm was applied. The patient was then transferred back to her hospital bed and taken to the recovery room in good condition having tolerated the procedure well. Complications: none Post-operative Condition: stable Disposition: PACU Plan for aftercare: The patient will be allowed to weight bear as tolerated on her left hip however will be advised to use a walker or crutches both for balance and for pain control until partial or complete healing of the fracture. She will be discharged likely to a alf facility once she is medically stable. DVT prophylaxis will be determined by the medical team as she does have a history of a subarachnoid bleed. Preliminarily we will place her on 81 mg of aspirin twice a day as this seems to be the least dangerous of the various alternatives.
--- NOTE | 2022-10-08 13:01 | CM.DANOTE ---
Initial Discharge Assessment Note: Case reviewed, met with patient just as surgery preparing to take her down to surgery. Introduced self and role. Payer: [employer] PCP: Negro Newell 87 year old admitted after a fall with a left femoral neck fracture. She went to OR late this morning. She lives in [place] with spouse Bradly and is independent in ADLs she states. She wants to go home as her discharge plan. Plan: Discharge home once medically cleared. Discharge home to care of who can provide transport. Possible Home Health, discuss with patient post op. J Discharge Planning/Care Management Advanced directive, confirm from FAMILY Start: 10/07/22 21:07 Freq: Q24H Status: Active Protocol: Document 10/07/22 21:07 AGW (Rec: 10/07/22 23:08 AGW [id number]) Advance Directive, confirm on record Time 21:00 Person contacted patient Copy received No CM Discharge Assessment Start: 10/08/22 12:51 Freq: Status: Active Protocol: Document 10/08/22 12:52 (Rec: 10/08/22 13:01 [id number]) Discharge Planning Assessment Assigned [employer] Operator Vi Gonzalez RN/DCP Advance Directives? Yes Advance Directives on File No History Provided By Patient,Medical Record Prior Living Arrangements House Household Members spouse Comment unknown Independent with ADL's Yes Is patient alert and oriented? Yes Caregiver for Another No Comment unknown. Patient states she is independent. Discharge Plan Home Transportation Arrangement Family to provide tranport when medically stable. Additional Comment unknown at this time Review Status In Process Next Review Type Continued Stay Review
[2022-10-08] MEDS: OXYCODONE IR 5 MG TABLET PO (13:38)
--- NOTE | 2022-10-08 14:49 | P.PN_ITS ---
Subjective Subjective Date Patient Seen: 10/08/22 Time Patient Seen: 14:30 Interval history: She went to OR today and had percutaneous screw fixation for the left femoral neck fracture. Her pain is well controlled currently. Exam Vital Signs (past 8 hours): - 10/08/22 08:00 10/08/22 07:00 10/08/22 08:45 Temperature 97.6 F Pulse Rate 73 Respiratory Rate 16 Blood Pressure 152/58 H Pulse Oximetry 98 98 Oxygen Delivery Method Room Air Room Air Oxygen Flow Rate 10/08/22 10:43 10/08/22 12:11 10/08/22 12:21 Temperature 99.1 F 98.8 F Pulse Rate 81 89 91 H Respiratory Rate 16 12 12 Blood Pressure 150/70 H 120/70 110/60 Pulse Oximetry 96 94 98 Oxygen Delivery Method Room Air Nasal Cannula Nasal Cannula Oxygen Flow Rate 6 6 10/08/22 12:26 10/08/22 12:34 10/08/22 12:46 Temperature 98.0 F 98.2 F Pulse Rate 95 H 90 84 Respiratory Rate 18 12 16 Blood Pressure 142/53 H 161/79 H 155/70 H Pulse Oximetry 97 92 95 Oxygen Delivery Method Room Air Room Air Room Air Oxygen Flow Rate 10/08/22 13:07 10/08/22 13:30 Temperature 98.0 F Pulse Rate 80 76 Respiratory Rate 16 16 Blood Pressure 177/75 H 177/75 H Pulse Oximetry 94 Oxygen Delivery Method Oxygen Flow Rate Oxygen Delivery Method Room Air Oxygen Flow Rate 6 Narrative Exam Narrative: GEN: no acute distress PULM: clear bilaterally, no wheezes, rhonchi, rales CV: regular rate and rhythm, no murmurs ABD: soft, nontender, nondistended, no organomegaly EXT: warm and well perfused, pain to palpation on left hip NEURO: awake, alert, oriented, no focal deficits Objective Labs Result Diagrams: 10/08/22 06:16 10/08/22 06:16 Labs: Laboratory Results - last 24 hr 10/07/22 10/07/22 10/07/22 15:23 15:26 15:26 WBC 7.1 RBC 4.72 Hgb 11.8 L Hct 36.1 MCV 76.6 L MCH 25.0 L MCHC 32.7 RDW 14.8 Plt Count 216 Neut % (Auto) 69.7 Lymph % (Auto) 20.7 L [place] % (Auto) 8.0 Eos % (Auto) 1.0 L Baso % (Auto) 0.6 Neut # (Auto) 4900 Lymph # (Auto) 1500 [place] # (Auto) 600 Eos # (Auto) 100 Baso # (Auto) 0 Sodium 140 Potassium 3.7 Chloride 105 Carbon Dioxide 26 BUN 10 Creatinine 0.71 Estimated GFR > 60 BUN/Creatinine Ratio 14.1 Glucose 98 Calcium 9.0 Magnesium 1.9 SARS-CoV-2 (PCR) Negative 10/08/22 10/08/22 06:16 06:16 WBC 5.6 RBC 4.40 Hgb 11.3 L Hct 33.5 L MCV 76.1 L MCH 25.6 L MCHC 33.7 RDW 14.6 Plt Count 199 Neut % (Auto) 62.2 Lymph % (Auto) 25.7 [place] % (Auto) 8.4 Eos % (Auto) 2.7 Baso % (Auto) 1.0 Neut # (Auto) 3500 Lymph # (Auto) 1400 [place] # (Auto) 500 Eos # (Auto) 200 Baso # (Auto) 100 Sodium 138 Potassium 3.8 Chloride 107 Carbon Dioxide 25 BUN 10 Creatinine 0.65 Estimated GFR > 60 BUN/Creatinine Ratio 15.4 Glucose 93 Calcium 8.3 L Magnesium 1.9 SARS-CoV-2 (PCR) [facility] Medical History Anxiety and depression Migraine aura without headache Subarachnoid hemorrhage Surgical History History of cholecystectomy History of tonsillectomy Family History Mother Stroke Vertigo Father Heart disease Myocardial infarct Social History household members: spouse Smoking Status: Never smoker alcohol intake: current Assessment & Plan Assessment & Plan narrative: 1. Left hip fracture -orthopedic surgery consulted, and planning for surgery -s/p fixation with screw with left femoral fracture on 10/08 -pain control ordered -dvt ppx asa bid per ortho recs 2. History of CVA -hold aspirin until after surgery -continue statin 3. Hypertension -continue lisinopril 4. Depression -continue paroxetine I did discuss plan of care with patient's nurse and other hospitalist. I have independently reviewed available labs, previous admission/discharge notes, and hip xray and pelvis CT. CODE: DNR/DNI Proxy: Bradly Hinojosa, spouse I have utilized all available resources to reconcile the patient's home medications Time Spent With Patient Critical Care time: I spent a total of [] minutes of critical care time on this patient's care today; this time is exclusive of procedural time. Quality VTE Deep Vein Thrombosis/Pulmonary Embolism Present on Admission: No
--- NOTE | 2022-10-08 15:05 | PT.IIE ---
Current Diagnoses Unspecified intracapsular fracture of left femur, initial encounter for closed fracture (10/07/22) Surgery Performed Operation Date: 10/08/22 15:45 Actual Procedures p closed reduction/ perc pinning hip(Left) - Jorge Candelaria MD Surgical History (Last Reviewed 10/08/22 @ 06:25 by Mode Dukes MD) History of cholecystectomy History of tonsillectomy Medical History (Last Reviewed 10/08/22 @ 06:25 by Mode Dukes MD) Anxiety and depression Migraine aura without headache Subarachnoid hemorrhage Physical Therapy Inpatient Evaluation/Re-Eval M1 PT/OT-IP Prior Functional Status Start: 10/08/22 18:11 Freq: NEEDED Status: Active Protocol: Document 10/08/22 15:05 AB (Rec: 10/08/22 18:24 AB [id number]) Medical Review Prior Functional Status Medical History Reviewed Yes Communication able to make needs known Mobility and Gait pt sated that she is modified independent with all mobilities and ambulation without AD Social History Household Members spouse Living Arrangements House Number of Floors (Floors) Two Floors Number of Stairs To Enter/Railing? 3 steps B rails to enter the house: pt can stay on first level of the house if needed has 12 steps B rails to the bedroom Home Environment High Toilet,Walk in Shower Home Equipment Straight Cane,Crutches,Grab Bars In Shower Additional Social History Comment daughter will assist pt at home pt has walking sticks M2 PT-IP Current Condition Start: 10/08/22 18:11 Freq: NEEDED Status: Active Protocol: Document 10/08/22 15:05 AB (Rec: 10/08/22 18:24 AB [id number]) Physical Therapy Current Condition Current Condition Evaluation Date 10/08/22 Treatment Diagnosis L hip fracture s/p percutaneous pinning; difficulty in walking Onset Date 10/07/22 M3 PT-IP Subjective Start: 10/08/22 18:11 Freq: NEEDED Status: Active Protocol: Document 10/08/22 15:05 AB (Rec: 10/08/22 18:24 AB [id number]) Subjective Physical Therapy Visit Type Type Initial Evaluation Visit Start Time 15:05 Visit Stop Time 15:55 Total Visit Minutes 50 Number of ARCHITECTURAL ADMINISTRATIVE ASSISTANT Visits 0 Physical Therapy Visit Comments Patient Comments agreeble to do PT Therapy Pain Assessment Pain When Pain Assessed At Rest Pain Present Pain Present Pain Reported Location left hip Intensity 1 Scale Used Numeric (0 - 10) Pain Management Techniques Distraction,Modification of Treatment,Re-positioning, Timing of Activity with Medications M4 PT-IP Mobility and Gait Start: 10/08/22 18:11 Freq: NEEDED Status: Active Protocol: Document 10/08/22 15:05 AB (Rec: 10/08/22 18:24 AB [id number]) PT-Bed Mobility Assessment Supine to Sit Supine to Sit Standby Assistance Sit to Supine Sit to Supine Standby Assistance PT-Transfer Assessment Sit to and From Stand Sit to and from Stand Contact Guard Assistance,1 Person Assistance,Use of Upper Extremities Equipment Transfer Assistive Device Gait Belt,Front Wheeled Walker Orthotic/Prosthetic Devices or Brace: No Transfers Transfer Destination Toilet Transfer Technique ambulated Transfer Ability Level of Assist Contact Guard Assistance,1 Person Assistance,Use of Upper Extremities Comments Mobility Comments pt completed supine to sit SBA . able to sit on EOB SBA. pt requested to use the toilet. completed sit to stand CGA and ambulated to the toilet using FWW CGA. cued for safety and quads activation. completed sit to stand from the toilet using grab bar CGA and ambulated towards the sink using FWW CGA. able to maintain standing using FWW for support while completing handwashing. pt ambulated back to bed using fWW CGA. completed sit to supine SBA. positioned pt in bed. call light and table placed within reach. caregiver training set up for tomorrow at 9 am. Gait Assessment Gait Gait Assistance Required: Contact Guard Assist Distance (Feet) 15 Able to Maintain Weight Bearing Status Yes During Gait Assistive Devices Assistive Device None,Front Wheeled Walker Orthotic/Prosthetic Devices or Brace: No Gait Deviations General Gait Pattern Decreased Stride Length, Decreased Feet Clearance,Step- to Gait Factors Limiting Gait Function Factors Limiting Gait Function Decreased Activity Tolerance, Decreased Strength,Limited Range of Motion,Pain,Poor Balance,Poor Safety Awareness PT-Balance Assessment Sitting Balance and Reactions Static Sitting Balance Ability Normal Dynamic Sitting Balance Ability Good Standing Balance and Reactions Static Standing Balance Ability Fair Dynamic Standing Balance Ability Fair Device Used FWW M5 PT-IP Objective Assessments Start: 10/08/22 18:11 Freq: NEEDED Status: Active Protocol: Document 10/08/22 15:05 AB (Rec: 10/08/22 18:24 AB [id number]) Orientation Orientation/Cognition Level of Alertness Alert Orientation Name,Place,Situation Language Function Ability No Deficits Noted Safety Awareness Decreased Safety Awareness Memory Description Short Term Impaired Gross Range of Motion Lower Extremity ROM Assessment Within Functional Limits Strength Lower Extremity Strength Assessment Left Impaired Hip 3+/5 Knee 4-/5 Sensation Assessment Sensation Gross Sensation WNL Muscle Tone Muscle Tone WNL Yes M6 PT-IP Treatment Start: 10/08/22 18:11 Freq: NEEDED Status: Active Protocol: Document 10/08/22 15:05 AB (Rec: 10/08/22 18:24 AB [id number]) Physical Therapy Treatment Education Education Provided Precautions,Weight Bearing Status,Post-Op Packet,Safety M7 PT-IP Assessment and Plan Start: 10/08/22 18:11 Freq: NEEDED Status: Active Protocol: Document 10/08/22 15:05 AB (Rec: 10/08/22 18:24 [id number]) PT Summary Assessment and Plan Potential Rehabilitation Potential Good Status of Condition at Evaluation Stable Summary Impairments Pain,ROM,Strength,Balance, Coordination,Sensation,Tone, Cognition,Bed Mobility, Transfers,Gait,Activity Tolerance Assessment Summary pt requiring CGA with mobility using FWW. caregiver training set up for tomorrow at 9 am. informed pt and daughter regarding need for FWW and daughter will try to get one for pt. will continue to assess progress. Goals Bed Mobility Goal Independent Transfer Goal Independent,Front Wheeled Walker Gait Goal Independent,Front Wheel Walker Gait Distance 150 Other Goals up/down 3 steps B rails SBA Days to Meet Goals 5 Frequency of Treatment Frequency Of Treatment Twice a Day Treatment Plan Physical Therapy Treatment Plan Bed Mobility Training,Transfer Training,Gait Training, Therapeutic Exercise,Balance Retraining,Post Op Education, Discharge Planning,Hot or Cold Pack,Neuromuscular Re-ed, Coordination Retraining,Manual Therapy Weight Bearing Status Weight Bearing Status Weight Bear as Tolerated Allowed Weight Bearing Amount (enter % LLE WBAT or #) (%) Recommendations To Nursing Amount of Assist Needed 1 Person Assist Discharge Recommendations PT Discharge Recommendations Home with Assistance, Outpatient PT Equipment Needed for Home Before FWW Discharge Transportation Needs at Discharge Private Vehicle
--- NOTE | 2022-10-08 15:43 | PC.NURSE ---
Pt arrived from PACU around 1300. A&Ox4, c/o mild pain to L thigh. BP elevated 177/75, otherwise VSS on 1L O2. Gauze/tegaderm dressing to L thigh c/d/i. PRN oxycodone administered per NOV. Pt reoriented to room and call light, bed in low position, calf SCDs in place, bed alarm activated.
[2022-10-08] MEDS: lisinopriL 5 MG TABLET 2.5 MG PO (15:59)
[2022-10-08] MEDS: ACETAMINOPHEN 325 MG TABLET 650 MG PO (18:13)
[2022-10-08] MEDS: IBUPROFEN 400 MG TABLET PO (18:13)
[2022-10-08] MEDS: ASPIRIN EC 81 MG TABLET PO (20:43)
[2022-10-08] MEDS: DOCUSATE 100 MG CAPSULE PO (20:43)
[2022-10-09] VITALS: O2SAT 94
[2022-10-09] MEDS: ACETAMINOPHEN 325 MG TABLET 650 MG PO ×3 (00:02→12:12)
[2022-10-09] MEDS: IBUPROFEN 400 MG TABLET PO ×3 (00:02→12:12)
[2022-10-09] MEDS: CEFAZOLIN 2 GM/100 ML PREMIX 100 ML IV (02:54)
[2022-10-09 04:00] VITALS: O2SAT 96
[2022-10-09 05:25] VITALS: BP 138/42; PULSE 67; RESP 17; TEMP 36.6; O2SAT 95
[2022-10-09 06:23] LABS: Add Manual Diff / Slide Review NO; Basophils Absolute Auto 100 /uL (0-100); Basophils Percent Auto 0.9 % (0-2); Eosinophils Absolute Auto 300 /uL (0-450); Eosinophils Percent Auto 5.2 % (2-4); Hematocrit 31.8 % (36-46); Hemoglobin 10.7 g/dL (12.0-16.0); Lymphocytes Absolute Auto 1600 /uL (1100-4500); Mean Corpuscular HGB Conc 33.5 % (30-36); Mean Corpuscular Hemoglobin 25.6 PG (26-34); Mean Corpuscular Volume 76.4 fL (80-100); Monocytes Absolute Auto 700 /uL (0-900); Monocytes Percent Auto 10.4 % (3-14); Neutrophils Absolute Auto 3700 /uL (1500-7000); Neutrophils Percent Auto 58.5 % (50-75); Platelet Count 185 X10^3/uL (150-400); Red Blood Cell Count 4.16 X10^6/uL (4.0-5.2); Red Cell Distribution Width 14.9 % (11.6-14.8); White Blood Cell Count 6.3 X10^3/uL (4.5-11.0)
[2022-10-09 06:41] LABS: BUN Creatinine Ratio 17.9 (6-22); Blood Urea Nitrogen 15 mg/dL (7-17); Calcium 8.3 mg/dL (8.4-10.2); Carbon Dioxide 26 mmol/L (22-32); Chloride 105 mmol/L (98-107); Estimated Glomerular Filt Rate > 60 mL/min (>60); Glucose 95 mg/dL (80-110); HEMOLYSIS < 15 (0-50); Magnesium 1.8 mg/dL (1.6-2.3); Potassium 3.7 mmol/L (3.4-5.1); Sodium 138 mmol/L (137-145)
--- NOTE | 2022-10-09 06:57 | PM.PNPO.1 ---
Subjective Subjective Date Patient Seen: 10/09/22 Time Patient Seen: 06:58 Interval history: Pt resting comfortably in bed, good pain control. Has been OOB to bathroom, voiding without difficulty. Would like to go home with spouse if possible. Exam Vital Signs (past 8 hours): - 10/09/22 00:00 10/09/22 04:00 10/09/22 05:25 Temperature 97.8 F Pulse Rate 67 Respiratory Rate 17 Blood Pressure 138/42 L Pulse Oximetry 94 96 95 Oxygen Delivery Method Room Air Room Air Oxygen Flow Rate 0 0 0 Oxygen Delivery Method Room Air Oxygen Flow Rate 0 Narrative Exam Narrative: 4/5 strength in hip flexors, quadriceps, hamstrings; 5/5 DF, PF, EHL on left. Sensation to light touch intact throughout LLE. Calf soft, compressible, and without palpable cords or masses. Gauze dressing placed intraoperatively with some serosanguinous drainage. Objective Labs Result Diagrams: 10/09/22 06:02 10/09/22 06:02 Labs: Laboratory Results - last 24 hr 10/09/22 10/09/22 06:02 06:02 WBC 6.3 RBC 4.16 Hgb 10.7 L Hct 31.8 L MCV 76.4 L MCH 25.6 L MCHC 33.5 RDW 14.9 H Plt Count 185 Neut % (Auto) 58.5 Lymph % (Auto) 25.0 [place] % (Auto) 10.4 Eos % (Auto) 5.2 H Baso % (Auto) 0.9 Neut # (Auto) 3700 Lymph # (Auto) 1600 [place] # (Auto) 700 Eos # (Auto) 300 Baso # (Auto) 100 Sodium 138 Potassium 3.7 Chloride 105 Carbon Dioxide 26 BUN 15 Creatinine 0.84 Estimated GFR > 60 BUN/Creatinine Ratio 17.9 Glucose 95 Calcium 8.3 L Magnesium 1.8 PFSH Medical History Anxiety and depression Migraine aura without headache Subarachnoid hemorrhage Surgical History History of cholecystectomy History of tonsillectomy Family History Mother Stroke Vertigo Father Heart disease Myocardial infarct Social History household members: spouse Smoking Status: Never smoker alcohol intake: current Assessment & Plan Post-op Assessment and plan (1) Status post hip surgery: Assessment and Plan narrative: PT to evaluate. Weightbearing as tolerated to LLE, but should continue to use walker or crutches for both balance and pain control. Currently on ASA 81 mg BID for VTE prophylaxis, and this can continue for 6 weeks unless contraindicated. Pt should follow up in ortho clinic in 10-14 days for wound check, and again at 6 weeks post op w/ Dr Candelaria for repeat imaging and symptom check. Disposition and pain control per hospitalist service. Postoperative Procedures: Procedures Operation Date: 10/08/22 15:45 Actual Procedure Side Surgeon p closed reduction/ perc pinning hip Left Jorge Candelaria MD Postoperative day: 1 Quality VTE Deep Vein Thrombosis/Pulmonary Embolism Present on Admission: No
[2022-10-09 08:00] VITALS: O2SAT 96
[2022-10-09] MEDS: ASPIRIN EC 81 MG TABLET PO (08:23)
[2022-10-09] MEDS: PARoxetine 20 MG TABLET PO (08:23)
[2022-10-09] MEDS: DOCUSATE 100 MG CAPSULE PO (08:23)
--- NOTE | 2022-10-09 08:48 | P.DS_ITS ---
History of Present Illness History of Present Illness Chief complaint: fall hit LT hip T-2 Narrative: 7W with PMH HTN, HL, CVA who presents to the hospital after a fall. She was trying to pick pulling machine tender her dog and slipped and fell on her left hip. She had pain afterwards. She actually fell two days ago. She had been trying to ambulate but did have significant pain, when at rest her pain is controlled. She did not hit her head and has pain nowhere else currently. In the ED workup was done, vitals notable for afebrile, blood pressure 174/81. Labs notable for WBC 7.1, hgb 11.8, creatinine 0.71. Hip xray read as slight irregularity along subcapital femoral neck. CT pelvis shows left femoral neck fracture. Ortho was consulted and planning for surgery. She was admitted for further treatment. Discharge Providers Provider Date of admission: 10/07/22 17:16 Discharge Date: 10/09/22 Primary care physician: Negro Newell MD Consults: 10/07/22 18:11 Consult to Orthopedic Surgery Routine Comment: Consulting Provider: Jorge Candelaria Reason for consultation: L femur fracture 10/08/22 12:35 Consult to Discharge Planning Routine Comment: Consult to Physical Therapy Evaluate & Treat Comment: Physician Instructions: may wbat on left leg. Walker training Discharge provider: Clarence Deng MD Summary Hospital Course Discharge Diagnosis: 1. Left hip fracture secondary to ground level fall 2. Chronic hypertension Bow Making Machine Operator: Dr. Jorge Candelaria Surgery: Left hip ORIF on 10/08/2022 Hospital Course: Patient was admitted for hip fracture secondary ground level fall. Did well after ORIF. Evaluated by PT and OT after surgery and able to go home. Caregi yury training was provided prior to discharge. Her pain is controlled with Tylenol. Calcium and vitamin-D started for home medications. Also advised to discuss with PCP osteoporosis workup or treatment. Status at Discharge Cognitive/behavioral status at discharge: oriented Functional status at discharge: uses cane/walker Overall status at discharge: patient is progressing back to baseline Time Spent with Patient Time spent: Greater than 30 minutes Exam Vital Signs (past 8 hours): - 10/09/22 04:00 10/09/22 05:25 10/09/22 08:00 Temperature 97.8 F Pulse Rate 67 Respiratory Rate 17 Blood Pressure 138/42 L Pulse Oximetry 96 95 96 Oxygen Delivery Method Room Air Room Air Oxygen Flow Rate 0 0 Oxygen Delivery Method Room Air Oxygen Flow Rate 0 Narrative Exam Narrative: General: Alert, NAD Lungs: Clear Heart: Regular rhythm Abdomen: Soft Extremities: Left hip dressing clean and dry, no pretibial edema Neuro: Affect normal, speech fluent, fully oriented Objective Labs Result Diagrams: 10/09/22 06:02 10/09/22 06:02 Labs: Laboratory Results - last 24 hr 10/09/22 10/09/22 06:02 06:02 WBC 6.3 RBC 4.16 Hgb 10.7 L Hct 31.8 L MCV 76.4 L MCH 25.6 L MCHC 33.5 RDW 14.9 H Plt Count 185 Neut % (Auto) 58.5 Lymph % (Auto) 25.0 [place] % (Auto) 10.4 Eos % (Auto) 5.2 H Baso % (Auto) 0.9 Neut # (Auto) 3700 Lymph # (Auto) 1600 [place] # (Auto) 700 Eos # (Auto) 300 Baso # (Auto) 100 Sodium 138 Potassium 3.7 Chloride 105 Carbon Dioxide 26 BUN 15 Creatinine 0.84 Estimated GFR > 60 BUN/Creatinine Ratio 17.9 Glucose 95 Calcium 8.3 L Magnesium 1.8 PFSH Medical History Anxiety and depression Migraine aura without headache Subarachnoid hemorrhage Surgical History History of cholecystectomy History of tonsillectomy Family History Mother Stroke Vertigo Father Heart disease Myocardial infarct Social History household members: spouse Smoking Status: Never smoker alcohol intake: current Discharge Plan Discharge Plan Patient Disposition: Home Provider Discharge Comment: You had surgery with Dr Jorge Candelaria for hip frac ture. We have prescribed aspirin 81 mg twice daily (OTC) for 6 weeks to prevent blood clots. Take Tylenol every 6 hours as needed for post-op pain. Follow up at Orthopedic surgery clinic in 2 weeks. Discuss with PCP evaluation or treatment for osteoporosis. Nursing Discharge Comment: disch after seen by PT Discharge orders & Medications Prescriptions: New aspirin 81 mg Tablet,Delayed Release (Dr/Ec) 81 mg PO BID 42 Days Qty: 84 0RF Rx Instructions: OTC acetaminophen 325 mg Tablet 650 mg PO Q6HR PRN (Reason: pain) Qty: 1 0RF Rx Instructions: OTC calcium carbonate 600 mg calcium (1,500 mg) tablet 600 mg PO BID Qty: 1 0RF Rx Instructions: OTC cholecalciferol (vitamin D3) [Vitamin D3] 50 mcg (2,000 unit) tablet 50 mcg PO DAILY Qty: 1 0RF Rx Instructions: OTC Continued paroxetine HCl 20 mg tablet 1 tab PO DAILY atorvastatin [Lipitor] 20 mg tablet 10 mg PO Q OTHER DAY lisinopril 2.5 mg tablet 2.5 mg PO DAILY Follow up/Referrals: Negro Newell MD [Primary Care Provider] - Jorge Candelaria MD [Physician] - 2 Weeks (See NGUYỄN in office 10-14 days after surgery for wound check. See Dr Candelaria in office 6 weeks after surgery for repeat xrays and symptom eval.) Diet/Activity/Treatments Diet: Regular Activity: Weightbearing as tolerated to LLE. Use walker or crutches for balance and pain control. Visit Report/Discharge Packet Stand Alone Forms: Patient Portal/API, Stroke Signs & Symptoms Discharge Data Primary Care Provider: Negro Newell Quality VTE Deep Vein Thrombosis/Pulmonary Embolism Present on Admission: No
[2022-10-09 09:00] VITALS: BP 129/56; PULSE 66; RESP 16; TEMP 35.8; O2SAT 96
--- NOTE | 2022-10-09 09:48 | PT.IPTN ---
Current Diagnoses Unspecified intracapsular fracture of left femur, initial encounter for closed fracture (10/07/22) Other specified postprocedural states (10/07/22) Surgery Performed Operation Date: 10/08/22 15:45 Actual Procedures p closed reduction/ perc pinning hip(Left) - Jorge Candelaria MD Physical Therapy Treatment Note M2 PT-IP Current Condition Start: 10/08/22 18:11 Freq: NEEDED Status: Discharge Protocol: Document 10/09/22 09:09 SP (Rec: 10/09/22 21:00 SP [id number]) Physical Therapy Current Condition Current Condition Evaluation Date 10/08/22 Treatment Diagnosis L hip fracture s/p percutaneous pinning; difficulty in walking Onset Date 10/07/22 M3 PT-IP Subjective Start: 10/08/22 18:11 Freq: NEEDED Status: Discharge Protocol: Document 10/09/22 09:09 SP (Rec: 10/09/22 21:00 SP [id number]) Subjective Physical Therapy Visit Type Type Treatment Note Visit Start Time 09:09 Visit Stop Time 09:48 Total Visit Minutes 39 Notes Daughter present, completed caregiver training including donning gait belt and any physical assist required. Number of FORKLIFT SUPERVISOR Visits 1 Physical Therapy Visit Comments Patient Comments agreeble to do PT Patient Goals return home with daughter to assist her, provided info to set up outpt therapy. Therapy Pain Assessment Pain When Pain Assessed During Mobility Pain Present Pain Present Denied Pain M4 PT-IP Mobility and Gait Start: 10/08/22 18:11 Freq: NEEDED Status: Discharge Protocol: Document 10/09/22 09:09 SP (Rec: 10/09/22 21:00 SP [id number]) PT-Bed Mobility Assessment Supine to Sit Supine to Sit Standby Assistance Sit to Supine Sit to Supine Standby Assistance PT-Transfer Assessment Sit to and From Stand Sit to and from Stand Standby Assistance,Contact Guard Assistance,Use of Upper Extremities Equipment Transfer Assistive Device Gait Belt,Front Wheeled Walker Orthotic/Prosthetic Devices or Brace: No Transfers Transfer Destination Bed,Chair,Toilet,Wheelchair Transfer Technique ambulated w/ FWW Transfer Ability Level of Assist Standby Assistance,Contact Guard Assistance,Use of Upper Extremities Comments Mobility Comments Pt was in bed when arrived. Instructed post exercises: AP, HS, quad and glut sets pre mobility with HO review. Instructed recommending outpt therapy to progress PLOF with SPC/no AD. Completed Supine> sit SBA. daughter donned gait belt. STS cued push from bed to FWW, SBA. Gait into bathroom w/ FWW 8 ft, pivot self gown mgt use grab bar slow descend to sit toilet CGA . Pt voided and self pericare. Instructed pt allow daughter put on her socks, no restrictions see in phyician documentation written be causious reaching and >90 deg hip flexion. STS use grab bar self undwear mgt. Pt gait to FWW close SBA, sink wash hands no UE support, steady good FWW positioning foward sink. Gait to hallway w/c total 20 ft SBA. Wheeled to stairs. Pt complete 3 stair mgt L HR and SPC in RUE, daughter provided hand over hand support steady SPC step to patterning ascend lead RLE/descend step to lead LLE cues for proper patterning x1. Pt able to walk back to her room approx 90 ft w/c follow/ not needed, receiprocal gait with Min BUE WB on FWW SBA. Pt returned to chair, elevated BLEs. Pt is ok to return home with family to assist her when medically cleared. Discussed recommending outpt to therapy and notified nursing/care mgt and provided list to pt/ daughter to assist her to make an appt to progress strength to functional independence. Gait Assessment Gait Gait Assistance Required: Contact Guard Assist Distance (Feet) 130 Able to Maintain Weight Bearing Status Yes During Gait Assistive Devices Assistive Device Gait Belt,Front Wheeled Walker Orthotic/Prosthetic Devices or Brace: No Gait Deviations General Gait Pattern Decreased Stride Length, Decreased Feet Clearance Factors Limiting Gait Function Factors Limiting Gait Function Decreased Activity Tolerance, Decreased Strength,Limited Range of Motion Comments Gait Comments see mobility comments Stair Climbing Assessment Evaluation Level of Assist On Stairs Contact Guard Assistance, Minimal Assistance,1 Person Assistance Devices Stair Climbing Assistive Devices Straight Cane,Left Railing Technique/Endurance Stair Climbing Direction Ascend and Descend Stair Climbing Technique Step to Step Number of Steps Climbed 3 Stair Climbing Set # Repetitions (reps) 1 Comments Stair Climbing Comments see mobility comments PT-Balance Assessment Sitting Balance and Reactions Static Sitting Balance Ability Normal Dynamic Sitting Balance Ability Good Standing Balance and Reactions Static Standing Balance Ability Good Dynamic Standing Balance Ability Good Device Used FWW M5 PT-IP Objective Assessments Start: 10/08/22 18:11 Freq: NEEDED Status: Discharge Protocol: Document 10/08/22 15:05 AB (Rec: 10/08/22 18:24 AB [id number]) Orientation Orientation/Cognition Level of Alertness Alert Orientation Name,Place,Situation Language Function Ability No Deficits Noted Safety Awareness Decreased Safety Awareness Memory Description Short Term Impaired Gross Range of Motion Lower Extremity ROM Assessment Within Functional Limits Strength Lower Extremity Strength Assessment Left Impaired Hip 3+/5 Knee 4-/5 Sensation Assessment Sensation Gross Sensation WNL Muscle Tone Muscle Tone WNL Yes M6 PT-IP Treatment Start: 10/08/22 18:11 Freq: NEEDED Status: Discharge Protocol: Document 10/09/22 09:09 SP (Rec: 10/09/22 21:00 SP [id number]) Physical Therapy Treatment Exercises Exercises Ankle Pumps,Gluteal Sets,Quad Sets,Heel Slides,Supine Hip Abduction,Seated Knee Flexion/ Extension Education Education Provided Precautions,Weight Bearing Status,Post-Op Packet,Safety M7 PT-IP Assessment and Plan Start: 10/08/22 18:11 Freq: NEEDED Status: Discharge Protocol: Document 10/09/22 09:09 SP (Rec: 10/09/22 21:00 SP [id number]) PT Summary Assessment and Plan Potential Rehabilitation Potential Good Status of Condition at Evaluation Stable Summary Impairments Pain,ROM,Strength,Balance, Coordination,Sensation,Tone, Cognition,Bed Mobility, Transfers,Gait,Activity Tolerance Progress Towards Goals Progressing Toward Goals,Slow Progress due to Activity Tolerance Assessment Summary pt requiring CGA/sBA with mobility using FWW, CG/Min A stair mgt. Pt stated daughter is acquiring FWW, will have at DC 11am. Pt is ok return home with family to assist her needed when medically cleared and call to set up outpt therapy. Notified care mgt. Goals Bed Mobility Goal Independent Transfer Goal Independent,Front Wheeled Walker Gait Goal Independent,Front Wheel Walker Gait Distance 150 Other Goals up/down 3 steps B rails SBA Days to Meet Goals 5 Frequency of Treatment Frequency Of Treatment Twice a Day Treatment Plan Physical Therapy Treatment Plan Bed Mobility Training,Transfer Training,Gait Training, Therapeutic Exercise,Balance Retraining,Post Op Education, Discharge Planning,Hot or Cold Pack,Neuromuscular Re-ed, Coordination Retraining,Manual Therapy Other Recommendations and Next Treatment post op ex, recheck Focus precautions, transfers, gait further distance w/ FWW/ LRAD, stair mgt progress to 1 HR. Weight Bearing Status Weight Bearing Status Weight Bear as Tolerated Allowed Weight Bearing Amount (enter % LLE WBAT or #) (%) Recommendations To Nursing Amount of Assist Needed Standby Assistance,1 Person Assist Discharge Recommendations PT Discharge Recommendations Home with Assistance, Outpatient PT Equipment Needed for Home Before FWW-family acquiring at [place] Discharge Transportation Needs at Discharge Private Vehicle
[2022-10-09 12:00] VITALS: O2SAT 96
--- NOTE | 2022-10-09 12:37 | PC.NURSE ---
Discharge note: Patient discharged home per MD order and cleared by PT. MD order for outpatient PT obtained. Discharge orders given to both patient and daughter, discussed importance of dressing care, mobility precautions, signs of worsening sx, and home safety. Both verbalized understanding of instructions. Home via private vehicle accompanied by daughter.
--- NOTE | 2022-10-09 13:06 | CM.DPNOTE ---
DCP Note DC home w/dtr today. Patient requests an order for outpatient PT, per request from her chosen outpatient PT clinic- [facility] in [place]. therapies have cleared patient for this plan Dr Deng kindly agreed to complete Rx for outpatient PT which this MORTGAGE LENDER delivered to patient; patient and dtr appreciative plan: DC home w/dtr and outpatient PT JW
== END 2022-10-09 12:42 | disposition home or self-care (01) | DRG 482 ==
LOC: ED 15:43 → AC 17:17
PROVIDERS: Orthopaedic Surgery; Admitting Provider Internal Medicine; Emergency Provider Emergency Medicine; PCP Family Medicine; Referring Provider Emergency Medicine; Visit Provider Internal Medicine
PROC: 0QS734Z Reposition Left Upper Femur with Internal Fixation Device, Percutaneous Approach (ICD-10-PCS; principal; 2022-10-08 15:45)
DX: S72.012A Unspecified intracapsular fracture of left femur, initial encounter for closed fracture (principal); F32.A Depression, unspecified; I10 Essential (primary) hypertension; W01.0XXA Fall on same level from slipping, tripping and stumbling without subsequent striking against object, initial encounter; Z66 Do not resuscitate; Z20.822 Contact with and (suspected) exposure to COVID-19; Z86.73 Personal history of transient ischemic attack (TIA), and cerebral infarction without residual deficits
CPT/HCPCS: 36415; 72192; 73502; 80048; 83735; 85025; 87635; 93005; 97110; 97116; 97161; 97530; 99284; C9803; J0690; J2405; J2704; J3010